=== PATIENT | male | born 1935 | race Caucasian/White ===

== ENCOUNTER 2024-01-04 20:28 | Inpatient (IN) | payer MEDICARE, SELFPAY ==
[2024-01-04] VITALS (8 sets, daily range): BP systolic 124–155; BP diastolic 71–98; BMI 34.5; BMI 36.5
[2024-01-04 17:33] LABS: % Basophils 0.6 % (0-2); % Eosinophils 3.4 % (0-6); % Immature Granulocytes 0.3 % (0-0.5); % Lymphocytes 25.9 % (20.5-51.1); % Monocytes 8.7 % (1.7-9.3); % Neutrophils 61.1 % (42.2-75.2); Absolute Eosinophils 0.2 10^3/uL (0-0.7); Absolute Lymphocytes 1.7 10^3/uL (1.2-3.4); Absolute Monocytes 0.6 10^3/uL (0.1-0.6); Hemoglobin 12.1 g/dL (13.0-18.0); Mean Corp Hgb Conc. 32.7 g/dL (33.0-37.0); Mean Corpuscular Hgb 23.5 pg (27.0-31.0); Mean Platelet Volume 10.5 fL (7.4-10.4); Nucleated Red Blood Cells % 0 % (-); Platelet Count 174 10^3/uL (130-400); Red Blood Cell Count 5.14 10^6/uL (4.70-6.10); Red Cell Dist. Width 15.9 % (11.5-14.5); White Blood Cell Count 6.5 10^3/uL (4.8-10.8)
[2024-01-04 17:51] LABS: ALT (SGPT) 24 U/L (0-50); AST (SGOT) 28 U/L (17-59); Albumin 4.2 g/dl (3.5-5.0); Alkaline Phosphatase 70 U/L (38-126); Blood Urea Nitrogen 32 mg/dl (9-20); Carbon Dioxide 25 mmol/L (22-30); Estimated Creatinine Clearance 44 ml/min; Glucose 133 mg/dl (70-99); Total Bilirubin 0.8 mg/dl (0.2-1.3); eGFR 53.17
[2024-01-04 17:57] LABS: NT-proBNP 1040 pg/ml; Troponin I < 0.012 ng/ml
[2024-01-04 17:59] LABS: Chloride 103 mmol/L (98-107); Potassium 4.4 mmol/L (3.5-5.1); Sodium 138 mmol/L (135-145)
--- NOTE | 2024-01-04 18:42 | ED.GENMED ---
History of Present Illness
General
Chief Complaint: Breathing Problem
Source: patient
Exam Limitations: none
Time Seen by Provider: 01/04/24 17:14
Nursing documentation reviewed up to this point in time: agreed with
Travel History
Have you had any contact with someone who has COVID-19?: No
Do you have any symptoms of coronavirus? Fever > 100 degrees, chills, cough, shortness of breath, sore throat, loss of taste or smell, muscle aches, or headache?: No
History of Present Illness
History of Present Illness:
88 y/o M from [employer] office with h/o chronic restrictive lung disease, FARMER, EFRAIN, htn, hld
chronic edema
here with worsening chronic FARMER x 3 weeks with 10 pound weight gain, worsening edema
he is on lasix 20 mg 4 times aweek for his edema, no dx of chf
pt apparently was followin gup today to get a new c pap machine and he was found to have wrosening edema, crackles both lungs. he apparently has had previous BNP which was normal 107 in 2021.
pt has not had any exertional chest pain
he says that he cannot do any light activity without dyspnea
he sleeps in a recliner with his legs down
followed by derek; anticoagulted duet o h/o atrial flutter
and has had stress test in 2021 which was neg.
Review of Systems
Review of Systems
Allergies reviewed?: Yes
All Other Systems: Not applicable
Phy Exam
Physical Exam
Physical Exam:
GENERAL: Alert , in no apparent distress, elevated BMI
EYE: pupils equal and reactive
NECK: Supple
ENT: o/p clr, mmm.
CARDIAC: Regular rate and rhythm ., Severe edema bilateral lower extremities, pitting
LUNGS: No tachypnea or respiratory distress, crackles in both bases, edema in both lower legs
ABDOMEN: Soft, without focal tenderness, no r/g, no cvat, normal bowel sounds
NEUROLOGICAL: Alert and oriented, no focal neuro deficits
SKIN: Warm and dry, skin intact. Hyperpigmentation bilateral lower extremities
MUSCULOSKELETAL: Moderate edema well perfused. neg fernando's sign
PSYCH: Normal and appropriate interaction.
Scores
Heart Failure Risk
Heart Failure Risk Score: Yes
History of Stroke or TIA: No
History of intubation for respiratory distress: No
Heart rate on ED arrival >/= 110: No
SaO2 <90% on arrival on room air: No
HR >/=110 during 3min walk test (or too ill to perform test): No
ECG has acute ischemic changes: No
Urea >/=12mmol/L (BUN 33.6mg/dL): No
Serum CO2>/=35mmol/L: No
Troponin I or T elevated to ND Level (0.4mg/dL): No
NT-proBNP >/=5,000ng/L (5,000pg/ml): No
HF Risk Score: 0
Admission Status: LOW RISK 2.8% Consider discharge to home with f/u visit to PCP/R D Engineer
Course
Orders/Labs/Results
Orders:
Orders
01/04/24 14:53
EKG [Electrocardiogram (*1)] Urgent
Reason for Study: Shortness of Breath
EKG- Treatment ONCE
01/04/24 17:23
Complete Blood Count/With Diff Urgent
Comprehensive Metabolic Panel Urgent
Pro-BNP [NT-proBNP] Urgent
Troponin I Urgent
01/04/24 17:44
CR Chest - 2 Views Urgent
Comment:
Reason For Exam: edema, sob
01/04/24 18:58
Furosemide [Lasix] 40 mg IV NOW STA
Abnormal Lab Results
01/04/24
17:23
Hgb 12.1 L g/dL
(13.0-18.0)
Hct 37.0 L %
(39.0-52.0)
MCV 72.0 L fL
(80.0-94.0)
MCH 23.5 L pg
(27.0-31.0)
MCHC 32.7 L g/dL
(33.0-37.0)
RDW 15.9 H %
(11.5-14.5)
MPV 10.5 H fL
(7.4-10.4)
BUN 32 H mg/dl
(9-20)
Glucose 133 H mg/dl
(70-99)
01/04/24 17:23
01/04/24 17:23
Vital Signs
Initial and Last Documented VS:
Initial Vital Signs
Temp Pulse Resp BP Pulse Ox
98.4 F 53 26 148/91 95
01/04/24 14:49 01/04/24 14:49 01/04/24 14:49 01/04/24 14:49 01/04/24 14:49
Last Documented Vital Signs
Temp Pulse Resp BP Pulse Ox
98.4 F 53 26 148/91 95
01/04/24 14:49 01/04/24 14:49 01/04/24 14:49 01/04/24 14:49 01/04/24 17:21
MDM/Problems Addressed
Differential Diagnosis Includes:
chf, edema, copd
MDM/Problems Addressed:
will correa 88 y/o M with hth, hld, copd, PAF on thinners, sleep apnea; sent by pulm for worsening acute on chrnoic FARMER x 3 weeks with worsening edema in legs; takes lasix 20 mg 4 x per week, no dx of chf; followed by derek; pt has had 10
pound weight gain and now has crackles in lungs; no chest pain; bnp today 1000, previously 107 per pulm notes that pt has with him. small pleural effusions on cxr; ordered lasix; trop neg. pt meets admission criteria for acute chf.
*Critical Care Note
Total Time (30-74mins, 75-104mins- exclusive of procedures): Not Applicable
ED Attending Note
-
Portions of this chart may have been created with voice recognition software.� Occasional wrong word or��sound alike� substitutions may have occurred due to the inherent limitations of voice recognition software.
Discharge Plan
Departure
Patient Disposition: Admit
Date of Disposition: 01/04/24
Time of Disposition: 18:58
Admit to: Telemetry
Presentation/result/management discussed w/ accepting MD/DO: Hospitalist
Condition: Fair
Covid-19: Not Applicable
Discharge Problem:
CHF (congestive heart failure)
Prescriptions:
No Action
aspirin 81 MG tablet,delayed release (DR/EC)
81 mg PO HS
amlodipine 10 MG tablet
10 mg PO DAILY
losartan 25 MG tablet
25 mg PO DAILY
Referrals:
Linda Rao CRNP [Family Provider] -
Interventions
Interventions:
*Risk Screen - Suicide Last Done: 01/04/24 14:49
*General Assessment Last Done: 01/04/24 14:49
*Neglect/Abuse Screening Last Done: 01/04/24 14:49
ED- Fall Risk Assessment Last Done: 01/04/24 17:22
*ED COVID-19 Vaccine History Last Done: 01/04/24 14:49
ED- Cardiac Assessment Last Done: 01/04/24 17:21
ED- Pulmonary Assessment Last Done: 01/04/24 17:21
[2024-01-04] MEDS: LASIX 40 MG IV (19:11)
--- NOTE | 2024-01-04 20:01 | HPS.HSE ---
Family Physician
-
Family Physician: ДМИТРИЙ Herr
Chief Complaint
-
SOB, Edema
History of Present Illness
Patient is an 88y M with PMH significant for COPD, EFRAIN, hypertension and obesity who presents to ED complaining of SOB and LE edema. Patient states that he has noted increasing swelling of both legs for the past 3 weeks or so. He has also noted
shortness of breath with minimal activity during that same time frame. He notes that he sleeps upright in a recliner - with his legs in a dependent position / not elevated. He has been poorly compliant with his PAP therapy, until he received a new
machine within the past month. He has been doing much better since then. He denies any cough, chest pain, palpitations or fevers and chills. He was seen by his Professor Of Counseling today and advised to present to the ED for evaluation of apparent volume
overload / CHF.
Patient states that he is followed by Dr. Barajas; although, he cannot tell me why. He has some evident memory impairment and is a generally poor historian.
Medical History
Past Medical History
Past Medical History: Reports Other
Additional Past Medical History:
COPD
Restrictive Lung Disease
EFRAIN on CPAP
Obesity
A-Fib / Flutter
Prostate Cancer
GERD
Hypertension
Past Surgical History: Reports Other
Additional Past Surgical History:
Radical Prostatectomy
Social History
Tobacco: Former Smoker (Quit smoking about 20 years ago. > 40 pack years total use.)
Alcohol: Occasional
Drug: None
Personal:
Living: With Family
Family History
Family History: Other (Father: CAD Mother: Longevity)
Allergies / Home Medications
Allergies reflects when Allergies were last updated in [facility].
Home Medications with original date entered in [facility]
Allergy/Medication List:
Allergies
Allergy/AdvReac Type Severity Reaction Status Date / Time
Bee Stings Allergy Severe Anaphylaxis Uncoded 07/20/16 09:55
Home Medications
albuterol sulfate 90 mcg/actuation aerosol inhaler (Ventolin HFA) 2 puff inhalation 6XD PRN SOB 01/04/24
amlodipine 5 mg tablet (Norvasc) 5 mg PO DAILY 01/04/24
atorvastatin 10 mg tablet (Lipitor) 10 mg PO HS 01/04/24
budesonide 180 mcg/actuation breath activated powder inhaler (Pulmicort Flexhaler) 2 inh inhalation BID 01/04/24
esomeprazole magnesium 20 mg capsule,delayed release (Nexium) 20 mg PO DAILY 01/04/24
furosemide 20 mg tablet (Lasix) 20 mg PO MOWEFRSA 01/04/24
rivaroxaban 20 mg tablet (Xarelto) 20 mg PO DAILY 01/04/24
valsartan 160 mg tablet 160 mg PO DAILY 01/04/24
vitamins A,C,J-lvjz-orgfaa 2,148 mcg-113 mg-45 mg-17.4 mg tablet (PreserVision AREDS) 1 tab PO DAILY 01/04/24
Review of Systems
-
History Source: Patient
A 12 point ROS was completed and negative except as noted: Yes
Constitutional: Reports Fatigue and Sleep Disturbance; Denies Fever or Chills
EENT: Denies Sore Throat
Respiratory: Reports Trouble Breathing; Denies Cough or Hemoptysis
Cardiac: Denies Chest Pain, Diaphoresis, Palpitations or Syncope
Abdomen/GI: Denies Abdominal Pain, Nausea, Vomiting or Diarrhea
: Reports Other (Nocturia); Denies Dysuria, Frequency or Flank Pain
Musculoskeletal: Reports Edema
Neurological: Denies Dizzy or Headache
Psych: Denies Depression or Anxiety
Physical Exam
Vital Signs
Vital Signs
Temp Pulse Resp BP Pulse Ox
98.4 F 98 23 126/71 96
01/04/24 14:49 01/04/24 19:45 01/04/24 19:45 01/04/24 19:11 01/04/24 19:30
Physical Exam
General: Other (88y M in no acute distress.)
HEENT: Moist mucous membranes, PERRLA and Other (Thick neck.)
Respiratory: Other (Rales about 1/2 up bilaterally. Scattered expriratory squeaks and wheezes.)
Cardiac: S1/S2, Irregular Rhythm and Murmur (II/ VIRGEN)
GI: Soft, Non Tender, Non Distended and Normal Bowel Sounds
Musculoskeletal: No Clubbing, No Cyanosis and Other (3+ pitting edema b/l LE to the thigh. Superficial excoriations from scratching / itching.)
Neuro: AO x 3
Psych: Other (Memory impairment evident.)
Laboratory Results
-
01/04/24 17:23
01/04/24 17:23
Laboratory Results
Total Bilirubin 0.8 mg/dl (0.2-1.3) 01/04/24 17:23
AST 28 U/L (17-59) 01/04/24 17:23
ALT 24 U/L (0-50) 01/04/24 17:23
Alkaline Phosphatase 70 U/L (38-126) 01/04/24 17:23
Troponin I < 0.012 ng/ml 01/04/24 17:23
Impression/Plan
-
A/P: Patient is an 88y M with PMH significant for COPD, EFRAIN and hypertension who presents to ED for evaluation of LE edema and SOB that has been progressive over the past 3 weeks or so.
Acute CHF - Unknown Type
- Admit for further evaluation and treatment.
- Patient with rales on exam, evident edema and elevated BNP c/w CHF.
- Suspect preserved EF but will update Echo to confirm.
- IV Lasix and follow for effective diuresis.
- Cardiology evaluation.
- ? secondary to lung disease / poor compliance with PAP therapy v arrhythmia / A-Fib.
- Follow for clinical improvement.
COPD
Restrictive Lung Disease
EFRAIN on CPAP
- Patient admits to chronically poor compliance with his PAP therapy.
- Reinforced need for adequate EFRAIN treatment to prevent rodent exterminator complications.
- CPAP nightly during his stay here.
- Follow-up with Pulm as an outpatient.
- Continue inhaled medications for COPD.
Atrial Fibrillation / Flutter
- Suspect this is paroxysmal. A-Fib / Flutter based on Pulm notes and current meds (Xarelto).
- Patient has no recollection of this and cannot state why he follows with Cardiology.
- Cardio eval as noted above.
- Monitor on tele for now.
- Consider rate control medications if needed.
- May need rhythm control strategy if CHF is felt to be due to A-Fib.
- Continue Xarelto for stroke risk reduction.
Benign Hypertension
- Stable. Hold current BP medications to allow for effective diuresis.
- Resume ARB if BP tolerates.
CKD III
- Stable. Renal function is at / near recent baseline.
- Follow for changed with diuresis.
GERD
- Stable. Continue daily PPI.
Obesity due to excess calories
- Stable. Encourage healty diet and increased activity with goal of weight loss.
DVT Prophylaxis: On Xarelto
Code Status: Full
[2024-01-04] MEDS: PULMICORT 0.5 MG INH (22:20)
[2024-01-04] MEDS: LIPITOR 10 MG PO (22:33)
[2024-01-04] MEDS: MELATONIN 5 MG PO (22:33)
[2024-01-04 23:06] LABS: TSH Reflex To Free T4 3.24 uIU/ml (0.47-4.68)
[2024-01-05] VITALS (7 sets, daily range): BP systolic 116–157; BP diastolic 74–97; PULSE 79–83; O2SAT 97; BMI 35.7
[2024-01-05 00:54] LABS: Troponin I < 0.012 ng/ml
--- NOTE | 2024-01-05 05:34 | PTCARENOTE ---
Patient received from ED via stretcher and ambulated to bed with staff. He was oriented to room and surroundings. He is OX3. HR irregular. A fib with PVC on tele. LE +2-3 edema, elevated on pillows. He is FARMER with orthopnea Breath sounds with
scattered coarse rhonchi. RT in for neb tx. Sat 94% on room air. Abdomen is round and obese. He is voiding frequently in urinal. Bladder scan as documented. St cath for 500ml this shift. CHF folder given. See CHF education for teaching
points. Patient was restless and is very forgetful. Bed alarm and med sitter in place.
[2024-01-05 07:38] LABS: Hematocrit 36.2 % (39.0-52.0); Hemoglobin 11.6 g/dL (13.0-18.0); Mean Corpuscular Hgb 23.4 pg (27.0-31.0); Mean Corpuscular Volume 73.1 fL (80.0-94.0); Mean Platelet Volume 10.4 fL (7.4-10.4); Platelet Count 170 10^3/uL (130-400); Red Blood Cell Count 4.95 10^6/uL (4.70-6.10); Red Cell Dist. Width 15.8 % (11.5-14.5)
[2024-01-05 08:01] LABS: Troponin I 0.016 ng/ml
[2024-01-05 08:13] LABS: Blood Urea Nitrogen 30 mg/dl (9-20); Carbon Dioxide 28 mmol/L (22-30); Chloride 104 mmol/L (98-107); Estimated Creatinine Clearance 37 ml/min; Glucose 90 mg/dl (70-99); Sodium 139 mmol/L (135-145); eGFR 48.65
[2024-01-05] MEDS: PULMICORT 0.5 MG INH ×2 (08:19→20:32)
--- NOTE | 2024-01-05 08:48 | CON.CAR ---
Addendum entered and electronically signed by Juan David Mathur MD 01/05/24 11:07:
88-year-old male with COPD admitted now with shortness of breath and lower extremity edema after being seen by pulmonary as an outpatient today. Has a history of paroxysmal atrial fibrillation, was in sinus rhythm when last seen in cardiology
office in July 2023.
Allergies: None to medications
Outpatient medications: Ventolin, amlodipine 5 mg a day, atorvastatin 10 mg at bedtime, Pulmicort, Nexium, furosemide 20 mg 4 days a week, rivaroxaban 20 mg a day, valsartan 160 mg a day
PMH: COPD, sleep apnea, hypertension, obesity atrial fibrillation/flutter
PSH: Prostatectomy
SH: Former smoker, 20 years ago, occasional alcohol, , retired, lives with family
FH: Noncontributory
Review of systems negative except as above
157/87, pulse 58, respiratory 16, afebrile, sats 95%
Intake and output -1.2 L, straight cath 500 mL, weight 91.4 kg, down 2.1 kg at least, possibly more
No acute distress, head neck exam unremarkable, still with rales in lungs, irregular rate and rhythm, soft systolic murmur at base, JVD probably okay, abdomen benign, 3-4+ edema with excoriations, neuro nonfocal
Chest x-ray cardiomegaly, vascular congestion with possible minimal effusions, relatively low lung volumes
ECG atrial fibrillation, PVCs versus aberrant ventricular conduction, right bundle branch block left axis, relatively slow
Sestamibi study march 2022: Normal perfusion normal EF, rhythm was sinus
Echocardiogram May 2021 EF 55-60%, mild LVH, normal RV, dilated left atrium, mild to moderate mitral regurgitation, aortic valve area 1.1 peak gradient 31 mean gradient 16, pulmonary artery systolic pressure 31 mmHg
Hemoglobin 11.6, MCV 73, platelets 170, BUN/creatinine 30 and 1.4, proBNP 1040, troponin 0.016, normal TSH
Impression:
Acute on chronic heart failure with preserved EF, proBNP
Atrial fibrillation w/ controlled ventricular response, last in sinus rhythm July 2023
CKD, stage 3
COPD
Restrictive Lung Disease
EFRAIN on CPAP
Obesity
A-Fib / Flutter
Chronic anti-coagulation with Xarelto
PVCs
RBBB
Prostate Cancer
s/p Radical ProstatectomyGERD/Gastritis
Hypertension
Anemia, suspect iron deficiency
Echo 06/02/2021: EF 55 to 60%, mild concentric LVH.� Stage I DD, mild to moderate MR, mild to moderate with peak/mean gradient 31/16 mmHg with JEREMIAH 1.1 cm�.� Mild TR with PAP 31 mmHg.
Lexiscan nuclear stress test 03/21/22�with normal perfusion. EF 60%.
Plan:
He presents with what is presumably subacute HFpEF on possible mild chronic HFpEF with modest valvular heart disease in the form of aortic stenosis and mild to moderate MR.
Atrial fibrillation is probably persistent at this time and may be a contributor to his HFpEF. Given his circumstances however, I would favor a rate control strategy with continuation of anticoagulation rather than an attempt to reestablish sinus
rhythm.
Rate is adequately controlled. With HFpEF avoid calcium rony. With COPD, may want to limit beta-blockers.
Suspect he has iron deficiency anemia in the setting of Xarelto therapy. Will check iron studies, consider transition to Eliquis. Defer to hospitalist whether GI evaluation is warranted.
Will await echocardiogram, then make determination regarding best medical regimen, SGLT2 antagonists, spironolactone etc.
Continue IV furosemide. He is still probably 10 to 15 pounds above dry weight.
Original Note:
Consultation
Consultation Request
Date/Time Consultation Requested: 01/04/2024
Date/Time Consultation Performed: 01/05/2024
Requesting Provider: Dr. Rosario
Performing Provider: Yuliana Garcia PA-C for Dr. ELMIRA Mathur
Reason for Consultation: SOB, Edema
Medical History
-
History of Present Illness:
Patient is an 88 YOM w/ past medical history of hypertension, paroxysmal atrial fibrillation/flutter on chronic anticoagulation, hyperlipidemia, PVCs, prostate cancer s/p prostatectomy, COPD, restrictive lung disease and sleep apnea with
non-compliance with CPAP. He was seen by his outpatient stock taker 01/04/2023 and complained of ongoing shortness of breath, orthopnea and lower extremity edema and was referred to the emergency department. On arrival to emergency department
patient was noted to be in atrial fibrillation with controlled ventricular response with PVCs. Chest x-ray demonstrated stable elevation of right hemidiaphragm and stable scarring/atelectasis of lower lobes. proBNP mildly elevated at 1040.
Troponin x 3 negative. Patient was provided 40 mg IV Lasix in emergency department.
PMH:
COPD
Restrictive Lung Disease
EFRAIN on CPAP
Obesity
A-Fib / Flutter
Chronic anti-coagulation with Xarelto
PVCs
RBBB
Prostate Cancer
s/p Radical Prostatectomy
GERD/Gastritis
Hypertension
Past Medical History
Past Medical History: Other (See HPI)
Past Surgical History: Urological (Radical Prostatectomy)
Social History
Tobacco: Former Smoker (Quit smoking about 20 years ago. > 40 pack years total use.)
Alcohol: Occasional
Drug: None
Personal:
Living: With Family
Family History
Family History: CAD (Father) and Other (Mother Alzheimer dementia)
Allergies / Home Medications
Allergy/AdvReac Type Severity Reaction Status Date / Time
Bee Stings Allergy Severe Anaphylaxis Uncoded 07/20/16 09:55
Medication Instructions Recorded Confirmed Type
albuterol sulfate 90 mcg/actuation 2 puff inhalation 6XD PRN SOB 01/04/24 01/04/24 History
aerosol inhaler (Ventolin HFA)
amlodipine 5 mg tablet (Norvasc) 5 mg PO DAILY 01/04/24 01/04/24 History
atorvastatin 10 mg tablet (Lipitor) 10 mg PO HS 01/04/24 01/04/24 History
budesonide 180 mcg/actuation 2 inh inhalation BID 01/04/24 01/04/24 History
breath activated powder inhaler
(Pulmicort Flexhaler)
esomeprazole magnesium 20 mg 20 mg PO DAILY 01/04/24 01/04/24 History
capsule,delayed release (Nexium)
furosemide 20 mg tablet (Lasix) 20 mg PO MOWEFRSA 01/04/24 01/04/24 History
melatonin 5 mg tablet 5 mg PO HS PRN sleep 01/04/24 01/04/24 History
rivaroxaban 20 mg tablet (Xarelto) 20 mg PO DAILY 01/04/24 01/04/24 History
valsartan 160 mg tablet 160 mg PO DAILY 01/04/24 01/04/24 History
vitamins A,C,Z-wejo-brbzuu 2,148 1 tab PO DAILY 01/04/24 01/04/24 History
mcg-113 mg-45 mg-17.4 mg tablet
(PreserVision AREDS)
Review of Systems
-
History Source: Patient
All other systems: Negative unless noted
Physical Exam
Vital Signs
Temp Pulse Resp BP Pulse Ox
97.0 F 58 16 157/84 95
01/05/24 07:30 01/05/24 08:21 01/05/24 08:21 01/05/24 07:30 01/05/24 08:21
GEN: No distress, awake, Ox3
HEENT: supple, anicteric, mmm
LUNGS: crackles bilaterally with squeaks and faint exp wheeze
CV: Irreg irreg, S1/S2, 2/6 syst murmur
ABD: soft, BS+, NT/ND
EXT: +2-3 kirby edema
NEURO: poor historian, cognitive impairment
SKIN: No rash, excoriations on legs from itching
Lab Results
01/05/24 07:08
01/05/24 07:08
Troponin I 0.016 ng/ml D 01/05/24 07:08
Ehj-H-Vvdkutgjpsb Pept 1040 pg/ml 01/04/24 17:23
Impression / Plan
-
PCP: ДМИТРИЙ Herr
Health Occupations Instructor: Dr. Barajas
Impression:
Presented 01/04/2023 with edema and SOB
Acute on chronic heart failure with preserved EF, proBNP
Atrial fibrillation w/ controlled ventricular response, unclear duration
CKD, stage 3
COPD
Restrictive Lung Disease
EFRAIN on CPAP
Obesity
A-Fib / Flutter
Chronic anti-coagulation with Xarelto
PVCs
RBBB
Prostate Cancer
s/p Radical Prostatectomy
GERD/Gastritis
Hypertension
Echo 06/02/2021: EF 55 to 60%, mild concentric LVH. Stage I DD, mild to moderate MR, mild to moderate with peak/mean gradient 31/16 mmHg with JEREMIAH 1.1 cm�. Mild TR with PAP 31 mmHg.
Lexiscan nuclear stress test 03/21/22 with normal perfusion. EF 60%.
Plan:
Patient is an 88 YOM w/ past medical history of hypertension, paroxysmal atrial fibrillation/flutter on chronic anticoagulation, hyperlipidemia, PVCs, prostate cancer s/p prostatectomy, COPD, restrictive lung disease and sleep apnea with
non-compliance with CPAP. He was seen by his outpatient stock taker 01/04/2023 and complained of ongoing shortness of breath, orthopnea and lower extremity edema and was referred to the emergency department. On arrival to emergency department
patient was noted to be in atrial fibrillation with controlled ventricular response with PVCs. Chest x-ray demonstrated stable elevation of right hemidiaphragm and stable scarring/atelectasis of lower lobes. proBNP mildly elevated at 1040.
Troponin x 3 negative. Patient was provided 40 mg IV Lasix in emergency department.
-Presented 01/04/2024 with ongoing shortness of breath, edema, orthopnea.
-Acute on chronic heart failure with preserved ejection fraction, proBNP 1040.
-Patient reports good response to Lasix with at least 5 pound weight loss overnight. Continue gentle diuresis with IV Lasix. Takes Lasix 20 mg few times a week at home
-Monitor and trend renal function and electrolytes, creatinine did bump from 1.3-1.4 overnight.
-Would check echocardiogram
-Patient is now in atrial fibrillation with controlled ventricular response. He has a history of PAF. He is maintained on Xarelto as outpatient. He does admit to noncompliance with his CPAP recently which could have triggered his atrial
fibrillation. Continue to monitor on telemetry. Could consider cardioversion once improved from a volume standpoint
-History of hypertension on Norvasc and Valsartan at home. Consider switching Norvasc to Toprol or Cardizem pending echo.
-COPD/restrictive lung disease and EFRAIN w/ non-compliance w/ CPAP. Needs to have better compliance w/ CPAP to help reduce risk of PAF. Pulmonary is in process of arranging new CPAP mask.
Data Reviewed
-
EKG: Report Reviewed by me, Discussed with Physician, Discussed with Nurse and Discussed with Patient
Radiology: Report Reviewed by me, Discussed with Physician and Discussed with Patient
Labs: Labs Reviewed by me, Discussed with Physician, Discussed with Nurse and Discussed with Patient
Old Records: Reviewed
[2024-01-05] MEDS: XARELTO 20 MG PO (09:00)
[2024-01-05] MEDS: LASIX 20 MG IV ×2 (09:01→15:44)
[2024-01-05] MEDS: PROTONIX 40 MG PO (09:01)
--- NOTE | 2024-01-05 12:35 | W.PN.HOSP.TC ---
Addendum entered and electronically signed by Brad Bernabe MD 01/05/24 12:40:
Anemia with microcytosis dating back Many years. H&H stable. Check iron studies and heme test stools.
Original Note:
Today's Communication/Plan
-
Continue IV Lasix.
Follow creatinine and weight.
Check echocardiogram.
Continue telemetry.
Assessment / Plan
Assessment / Plan
A/P:� Patient is an 88y M with PMH significant for COPD, EFRAIN and hypertension who presents to ED for evaluation of LE edema and SOB that has been progressive over the past 3 weeks or so.
Acute CHF - Unknown Type
�- Admitted for further evaluation and treatment.
�-Patient feeling improved since admission.
�-Continue IV Lasix and follow for effective diuresis.
�- Cardiology evaluation noted-for echo today
�
COPD
Restrictive Lung Disease
EFRAIN on CPAP
�- Patient admits to chronically poor compliance with his PAP therapy.
�- Reinforced need for adequate EFRAIN treatment to prevent snf complications.
�- CPAP nightly during his stay here.
�- Follow-up with Pulm as an outpatient.
�- Continue inhaled medications for COPD.
-No acute bronchospasm. Doubt COPD flare.
Atrial Fibrillation / Flutter
�-No suspected persistent.
�- Patient has no recollection of this and cannot state why he follows with Cardiology.
�- Cardio eval as noted above.
�- Monitor on tele for now.
�- cw rate control medications .
��- Continue Xarelto for stroke risk reduction-based on the creatinine clearance decrease it to 50 mg.
Benign Hypertension
�- Stable.� Hold current BP medications to allow for effective diuresis.
�- Resume ARB if BP tolerates.
CKD III
�- Stable.� Renal function is at / near recent baseline.
�- Follow for changed with diuresis.
GERD
�- Stable.� Continue daily PPI.
Obesity due to excess calories
�- Stable.� Encourage healty diet and increased activity with goal of weight loss.
DVT Prophylaxis:� On Xarelto
Code Status:� Full
Anticipated Discharge: 24 - 48 hours
Subjective/Interval History
-
Date of Service: January 05, 2024
Feeling much improved with his breathing since coming into the hospital.
Objective Data
-
Labs:
Laboratory Results
01/05/24
07:08
WBC 7.0
Hgb 11.6 L
Hct 36.2 L
Plt Count 170
Sodium 139
Potassium 4.0
Chloride 104
Carbon Dioxide 28
BUN 30 H
Creatinine 1.4 H
Glucose 90
Calcium 9.0
Vital Signs:
Vital Signs
Temp Pulse Resp BP Pulse Ox
97.0 F 58 16 157/84 95
01/05/24 07:30 01/05/24 09:01 01/05/24 08:21 01/05/24 09:01 01/05/24 08:21
I&O
01/04/24 01/05/24 01/06/24
06:59 06:59 06:59
Intake Total 240 / 240
Output Total 1450 / 1450
Balance -1210 / -1210
Review of Systems
-
Constitutional: Denies Fever
EENT: Denies Sore Throat
Respiratory: Reports Cough (Intermittent)
Cardiac: Denies Chest Pain
Abdomen/GI: Denies Abdominal Pain, Nausea or Vomiting
Neuro: Denies Dizzy
Physical Exam
-
General: No Apparent Distress
HEENT: Moist Mucous Membranes
Respiratory: Crackles (Few in the left base today) and Non Labored Respirations; Negative Wheezes or Accessory Resp Muscle Use
GI: Soft, Nontender, Nondistended and Normal Bowel Sounds
Musculoskeletal: Edema, Right Lower Extrem and Edema, Left Lower Extrem
Neuro: AO x 3
Psych: Calm
Data Reviewed
-
Labs: Labs Reviewed by me
[2024-01-05 13:06] LABS: Iron 43 ug/dl (49-181)
[2024-01-05 13:11] LABS: Troponin I 0.012 ng/ml
[2024-01-05 13:16] LABS: Percent Saturation 11 % (20-50); Total Iron Binding Capacity 371 ug/dl (261-462)
--- NOTE | 2024-01-05 16:55 | CM ---
CM following re: d/c planning
Chart reviewed
CM attempted to meet with the patient at bedside however he was off the floor for an echo; pt spouse was at bedside and IA completed
Pt and his spouse reside in a split-level home with 10 [employer]
[employer]AGE BAT[employer] AND TESTER patient is reportedly independent at baseline
Pt has no past VN/SNF hx; and owns a r/w and spc
Pt has prescription coverage and rx's are [facility]
Pt PCP-Stephanie Zavala
Per PT eval. post d/c recommendation is for VN
CM to discuss home care options with patient and his spouse
CM will continue to remain available to the patient and assist with needs as applicable
PLAN; d/c home with VN
[2024-01-05] MEDS: DUONEB 3 ML INH (20:34)
[2024-01-05] MEDS: LIPITOR 10 MG PO (21:11)
[2024-01-05] MEDS: MELATONIN 5 MG PO (21:11)
[2024-01-06] VITALS (7 sets, daily range): BP systolic 121–134; BP diastolic 63–91; PULSE 64; O2SAT 95; BMI 35.3
--- NOTE | 2024-01-06 07:59 | W.PN.HOSP.TC ---
Today's Communication/Plan
-
DC planning.
Assessment / Plan
Assessment / Plan
A/P:� Patient is an 88y M with PMH significant for COPD, EFRAIN and hypertension who presents to ED for evaluation of LE edema and SOB that has been progressive over the past 3 weeks or so.
Acute CHF -with preserved EF.
�-Echo shows normal EF with moderate AAS without much significant changes on recent echo.
�-Patient feeling improved since admission. Improved weight to 199 pounds which is the lowest we have seen in the [facility]. also confirms it is the lowest weight.
�-Continue IV Lasix
�- Cardiology following.
-Labs from today pending.
�
COPD
Restrictive Lung Disease
EFRAIN on CPAP
�- Patient admits to chronically poor compliance with his PAP therapy.
�- Reinforced need for adequate EFRAIN treatment to prevent nursing home complications.
�- CPAP nightly during his stay here.
�- Follow-up with Pulm as an outpatient.
�- Continue inhaled medications for COPD.
- No active bronchospasm. Doubt COPD flare.
Atrial Fibrillation / Flutter
�- persistent.
��- Cardio eval as noted above.
� - cw rate control medications .Rate mostly under control.
��- Continue Xarelto for stroke risk reduction-based on the creatinine clearance decrease it to 50 mg.
Benign Hypertension
�- Stable.� Hold current BP medications to allow for effective diuresis.
�- Resume ARB if BP tolerates.
Cognitive impairment-patient has issues with orientation today but redirectable. Discussion with the today-patient also noted to be sometimes disoriented in his own house. Lately he has memory issues. No given diagnosis of dementia. They
noticed this changes ongoing for a bit. Advised to get neurocognitive testing as an outpatient for diagnosis of dementia
CKD III
�- Stable.� Renal function is at / near recent baseline.
�- Follow for changed with diuresis.
GERD
�- Stable.� Continue daily PPI.
Obesity due to excess calories
�- Stable.� Encourage healty diet and increased activity with goal of weight loss.
DVT Prophylaxis:� On Xarelto
Code Status:� Full
DC home if stable from cardiology standpoint today.
Anticipated Discharge: Today
Subjective/Interval History
-
Date of Service: January 06, 2024
This morning he is a bit disoriented. Directable. Last night no agitation noted.
Once he got reoriented he states he feels fine from the breathing standpoint his main complaint is lower extremity edema.
He wants to go home.
Objective Data
-
Labs:
Laboratory Results
01/06/24
07:36
WBC Pending
Hgb Pending
Hct Pending
Plt Count Pending
Sodium Pending
Potassium Pending
Chloride Pending
Carbon Dioxide Pending
BUN Pending
Creatinine Pending
Glucose Pending
Calcium Pending
Vital Signs:
Vital Signs
Temp Pulse Resp BP Pulse Ox
97.5 F 71 24 128/91 98
01/06/24 07:15 01/06/24 07:15 01/06/24 07:15 01/06/24 07:15 01/06/24 07:15
I&O
01/05/24 01/06/24 01/07/24
06:59 06:59 06:59
Intake Total 240 / 240 1140 / 1140
Output Total 1450 / 1450 1050 / 1050
Balance -1210 / -1210 90 / 90
Review of Systems
-
Respiratory: Denies Trouble Breathing
Cardiac: Denies Chest Pain
Abdomen/GI: Denies Abdominal Pain, Nausea or Vomiting
Neuro: Denies Dizzy
Physical Exam
-
General: No Apparent Distress
HEENT: Moist Mucous Membranes
Respiratory: Clear to Auscultation
Cardiac: S1/S2 and Irregular Rhythm; Negative Tachycardic
GI: Soft
Neuro: Awake, Alert, Oriented (Self and person) and No Motor Deficits; Negative Tremors
Psych: Calm and Confused; Negative Agitated
Data Reviewed
-
Labs: Labs Reviewed by me (Pending from today)
[2024-01-06 08:39] LABS: Hematocrit 37.2 % (39.0-52.0); Hemoglobin 12.1 g/dL (13.0-18.0); Mean Corp Hgb Conc. 32.5 g/dL (33.0-37.0); Mean Corpuscular Hgb 23.5 pg (27.0-31.0); Mean Corpuscular Volume 72.4 fL (80.0-94.0); Mean Platelet Volume 10.4 fL (7.4-10.4); Platelet Count 187 10^3/uL (130-400); Red Blood Cell Count 5.14 10^6/uL (4.70-6.10); Red Cell Dist. Width 15.5 % (11.5-14.5); White Blood Cell Count 7.2 10^3/uL (4.8-10.8)
[2024-01-06] MEDS: PULMICORT 0.5 MG INH ×2 (08:48→19:50)
[2024-01-06] MEDS: XARELTO 15 MG PO (08:49)
[2024-01-06] MEDS: DUONEB 3 ML INH ×2 (08:49→19:50)
[2024-01-06] MEDS: LASIX 20 MG IV ×2 (08:49→15:33)
[2024-01-06] MEDS: PROTONIX 40 MG PO (08:53)
[2024-01-06 09:14] LABS: Blood Urea Nitrogen 38 mg/dl (9-20); Calcium 9.1 mg/dl (8.4-10.2); Carbon Dioxide 29 mmol/L (22-30); Chloride 100 mmol/L (98-107); Estimated Creatinine Clearance 34 ml/min; Glucose 97 mg/dl (70-99); Iron 76 ug/dl (49-181); Potassium 3.9 mmol/L (3.5-5.1); Sodium 136 mmol/L (135-145); eGFR 44.78
[2024-01-06 09:25] LABS: Percent Saturation 19 % (20-50); Total Iron Binding Capacity 385 ug/dl (261-462)
[2024-01-06 09:50] LABS: Ferritin 20.3 ng/ml (17.9-464.0)
--- NOTE | 2024-01-06 09:51 | W.PN.CARDCBS ---
Today's Communication / Plan
-
Continue IV Lasix for another 24 hours.
Creatinine at 1.5. Continue to follow
Plan for atrial fibrillation is rate controlled.
Continue Xarelto.
Echo is essentially unchanged with preserved ejection fraction and moderate MR/AI
Likely discharge in a.m.
Impression / Plan
-
PCP: ДМИТРИЙ Herr
Environmental Sampling Technician: Dr. Barajas
Impression:
Presented 01/04/2023 with edema and SOB
Acute on chronic heart failure with preserved EF, proBNP
Atrial fibrillation w/ controlled ventricular response, unclear duration
CKD, stage 3
COPD
Restrictive Lung Disease
EFRAIN on CPAP
Obesity
A-Fib / Flutter
Chronic anti-coagulation with Xarelto
PVCs
RBBB
Prostate Cancer
s/p Radical Prostatectomy
GERD/Gastritis
Hypertension
Echo 06/02/2021: EF 55 to 60%, mild concentric LVH. Stage I DD, mild to moderate MR, mild to moderate with peak/mean gradient 31/16 mmHg with JEREMIAH 1.1 cm�. Mild TR with PAP 31 mmHg.
Lexiscan nuclear stress test 03/21/22 with normal perfusion. EF 60%.
Echo 01/06: EF 50 to 55%, moderate , mild to moderate MR. PA pressure 40
Plan:
Patient is an 88 YOM w/ past medical history of hypertension, paroxysmal atrial fibrillation/flutter on chronic anticoagulation, hyperlipidemia, PVCs, prostate cancer s/p prostatectomy, COPD, restrictive lung disease and sleep apnea with
non-compliance with CPAP. He was seen by his outpatient carbon cutter 01/04/2023 and complained of ongoing shortness of breath, orthopnea and lower extremity edema and was referred to the emergency department. On arrival to emergency department
patient was noted to be in atrial fibrillation with controlled ventricular response with PVCs. Chest x-ray demonstrated stable elevation of right hemidiaphragm and stable scarring/atelectasis of lower lobes. proBNP mildly elevated at 1040.
Troponin x 3 negative. Patient was provided 40 mg IV Lasix in emergency department.
-He is diuresing but remains volume overloaded. Creatinine up to 1.5. He still has edema in his legs. Will try and diurese with IV Lasix for another 24 hours.
-He is agreeable to stay another 24 hours and discharge in a.m. Repeat creatinine in AM. Would likely discharge home on 40 mg of Lasix p.o. daily if creatinine stable in a.m.
-Patient is now in atrial fibrillation with controlled ventricular response. He has a history of PAF. He is maintained on Xarelto as outpatient. He does admit to noncompliance with his CPAP recently which could have triggered his atrial
fibrillation. Continue to monitor on telemetry. Could consider cardioversion once improved from a volume standpoint
-History of hypertension on Norvasc and Valsartan at home. Consider switching Norvasc to Toprol or Cardizem pending echo.
-COPD/restrictive lung disease and EFRAIN w/ non-compliance w/ CPAP. Needs to have better compliance w/ CPAP to help reduce risk of PAF. Pulmonary is in process of arranging new CPAP mask.
Progress Note - Environmental Sampling Technician
Subjective
Date of Service: January 06, 2024
Improving but still with edema.
Objective
Labs:
01/06/24 07:36
01/06/24 07:36
Labs
Hgb 12.1 g/dL (13.0-18.0) L 01/06/24 07:36
Hct 37.2 % (39.0-52.0) L 01/06/24 07:36
Plt Count 187 10^3/uL (130-400) 01/06/24 07:36
Sodium 136 mmol/L (135-145) 01/06/24 07:36
Potassium 3.9 mmol/L (3.5-5.1) 01/06/24 07:36
BUN 38 mg/dl (9-20) H 01/06/24 07:36
Creatinine 1.5 mg/dL (0.7-1.3) H 01/06/24 07:36
Glucose 97 mg/dl (70-99) 01/06/24 07:36
Troponins
01/04/24 01/05/24 01/05/24
17:23 00:25 07:08
Troponin I < 0.012 < 0.012 0.016 D
01/05/24
12:42
Troponin I 0.012
Vital Signs and I&O:
Vital Signs
Temp Pulse Resp BP Pulse Ox
97.5 F 79 18 128/91 96
01/06/24 07:15 01/06/24 08:56 01/06/24 08:56 01/06/24 08:49 01/06/24 08:56
Vital Signs
Temp Pulse Resp BP Pulse Ox
97.5 F 79 18 128/91 96
01/06/24 07:15 01/06/24 08:56 01/06/24 08:56 01/06/24 08:49 01/06/24 08:56
Intake & Output
01/04/24 01/05/24 01/06/24 01/07/24
06:59 06:59 06:59 06:59
Intake Total 240 / 240 1140 / 1140
Output Total 1450 / 1450 1050 / 1050
Balance -1210 / -1210 90 / 90
Physical Exam
Physical Exam
GEN: No distress, awake, Ox3
HEENT: supple, anicteric, mmm
LUNGS: scatt rhonchi
CV: Irreg, S1/S2, 1/6 syst LSB, no gallop
ABD: soft, BS+, NT/ND
EXT: ++ edema
NEURO: Gross non-focal
SKIN: No rash
[2024-01-06] MEDS: MELATONIN 5 MG PO (21:00)
[2024-01-06] MEDS: LIPITOR 10 MG PO (21:00)
[2024-01-07 03:20] VITALS: BP 138/88
[2024-01-07 06:00] VITALS: BMI 35.3
[2024-01-07 07:00] VITALS: BP 141/90
[2024-01-07 08:01] LABS: Blood Urea Nitrogen 44 mg/dl (9-20); Calcium 9.4 mg/dl (8.4-10.2); Carbon Dioxide 32 mmol/L (22-30); Chloride 97 mmol/L (98-107); Estimated Creatinine Clearance 32 ml/min; Glucose 96 mg/dl (70-99); Potassium 3.8 mmol/L (3.5-5.1); Sodium 139 mmol/L (135-145); eGFR 41.44
[2024-01-07] MEDS: LASIX 20 MG IV (08:13)
[2024-01-07] MEDS: PROTONIX 40 MG PO (08:13)
[2024-01-07] MEDS: XARELTO 15 MG PO (08:13)
--- NOTE | 2024-01-07 08:41 | CM ---
Spoke with patient and family in room .
Offered VN at dc.
Family requested [facility] Referral placed.
PLAN Home with Family and [facility] if accepted
[2024-01-07] MEDS: PULMICORT 0.5 MG INH (08:57)
--- NOTE | 2024-01-07 10:27 | W.PN.HOSP.TC ---
Today's Communication/Plan
-
cw diuresis
DC planning
Assessment / Plan
Assessment / Plan
A/P:� Patient is an 88y M with PMH significant for COPD, EFRAIN and hypertension who presents to ED for evaluation of LE edema and SOB that has been progressive over the past 3 weeks or so.
Acute CHF -with preserved EF.
�-Echo shows normal EF with moderate AAS without much significant changes on recent echo.
�-Patient feeling improved since admission. Improved weight to 199 pounds which is the lowest we have seen in the [facility]. also confirms it is the lowest weight.
�-Continue IV Lasix per cards
�- Cardiology following.
COPD
Restrictive Lung Disease
EFRAIN on CPAP
�- Patient admits to chronically poor compliance with his PAP therapy.
�- Reinforced need for adequate EFRAIN treatment to prevent long term care phlebotomist complications.
�- CPAP nightly during his stay here.
�- Follow-up with Pulm as an outpatient.
�- Continue inhaled medications for COPD.
- No active bronchospasm. Doubt COPD flare.
Atrial Fibrillation / Flutter
�- persistent.
��- Cardio eval noted .
� - cw rate control medications .Rate mostly under control.
��- Continue Xarelto for stroke risk reduction-based on the creatinine clearance decrease it to 50 mg.
Benign Hypertension
�- Stable.� Hold current BP medications to allow for effective diuresis.
�- Resume ARB if BP tolerates.
Cognitive impairment-patient has issues with orientation today but redirectable. Discussion with the today-patient also noted to be sometimes disoriented in his own house. Lately he has memory issues. No given diagnosis of dementia. They
noticed this changes ongoing for a bit. Advised to get neurocognitive testing as an outpatient for diagnosis of dementia
CKD III
�- Stable.� Renal function is at / near recent baseline.
�- Follow for changs with diuresis- slight increase in Cr noted - follow on diuretics for now
GERD
�- Stable.� Continue daily PPI.
Obesity due to excess calories
�- Stable.� Encourage healty diet and increased activity with goal of weight loss.
DVT Prophylaxis:� On Xarelto
Code Status:� Full
DC home if stable from cardiology standpoint
Anticipated Discharge: Today
Subjective/Interval History
-
Date of Service: January 07, 2024
Patient is all dressed up and ready to go. Awaiting his cardiology visit.
He states his breathing has improved greatly. Not short of breath currently. No cough.
He also feels his lower extremity which are hard to touch have softened and improved.
Objective Data
-
Labs:
Laboratory Results
01/07/24
06:22
Sodium 139
Potassium 3.8
Chloride 97 L
Carbon Dioxide 32 H
BUN 44 H
Creatinine 1.6 H
Glucose 96
Calcium 9.4
Vital Signs:
Vital Signs
Temp Pulse Resp BP Pulse Ox
98.2 F 55 16 141/90 98
01/07/24 07:00 01/07/24 09:00 01/07/24 09:00 01/07/24 07:00 01/07/24 09:00
I&O
01/06/24 01/07/24 01/08/24
06:59 06:59 06:59
Intake Total 1140 / 1140 600 / 600
Output Total 1050 / 1050 250 / 250 700 / 700
Balance 90 / 90 350 / 350 -700 / -700
Review of Systems
-
Constitutional: Denies Fever or Chills
EENT: Denies Sore Throat
Cardiac: Denies Chest Pain
Abdomen/GI: Denies Abdominal Pain, Nausea or Vomiting
Neuro: Denies Dizzy
Physical Exam
-
General: No Apparent Distress
HEENT: Moist Mucous Membranes
Respiratory: Crackles (few in right base today) and Non Labored Respirations; Negative Wheezes or Accessory Resp Muscle Use
Cardiac: S1/S2 and Irregular Rhythm; Negative Tachycardic
GI: Soft
Musculoskeletal: Edema, Right Lower Extrem and Edema, Left Lower Extrem
Neuro: AO x 3
Data Reviewed
-
Labs: Labs Reviewed by me
[2024-01-07 11:00] VITALS: BP 145/88
--- NOTE | 2024-01-07 12:31 | W.PN.CARDCBS ---
Today's Communication / Plan
-
Okay for discharge. Lasix 40 mg daily with basic metabolic panel in 1 week.
Continue Xarelto.
Will discharge on amlodipine but hold valsartan.
Cardiac follow-up is arranged
Impression / Plan
-
PCP: ДМИТРИЙ Herr
Associate Professor Of Automation: Dr. Barajas
Impression:
Presented 01/04/2023 with edema and SOB
Acute on chronic heart failure with preserved EF, proBNP
Atrial fibrillation w/ controlled ventricular response, unclear duration
CKD, stage 3
COPD
Restrictive Lung Disease
EFRAIN on CPAP
Obesity
A-Fib / Flutter
Chronic anti-coagulation with Xarelto
PVCs
RBBB
Prostate Cancer
s/p Radical Prostatectomy
GERD/Gastritis
Hypertension
Echo 06/02/2021: EF 55 to 60%, mild concentric LVH. Stage I DD, mild to moderate MR, mild to moderate with peak/mean gradient 31/16 mmHg with JEREMIAH 1.1 cm�. Mild TR with PAP 31 mmHg.
Lexiscan nuclear stress test 03/21/22 with normal perfusion. EF 60%.
Echo 01/06: EF 50 to 55%, moderate , mild to moderate MR. PA pressure 40
Plan:
Patient is an 88 YOM w/ past medical history of hypertension, paroxysmal atrial fibrillation/flutter on chronic anticoagulation, hyperlipidemia, PVCs, prostate cancer s/p prostatectomy, COPD, restrictive lung disease and sleep apnea with
non-compliance with CPAP. He was seen by his outpatient physical meteorologist 01/04/2023 and complained of ongoing shortness of breath, orthopnea and lower extremity edema and was referred to the emergency department. On arrival to emergency department
patient was noted to be in atrial fibrillation with controlled ventricular response with PVCs. Chest x-ray demonstrated stable elevation of right hemidiaphragm and stable scarring/atelectasis of lower lobes. proBNP mildly elevated at 1040.
Troponin x 3 negative. Patient was provided 40 mg IV Lasix in emergency department.
-He has diuresed well. Okay to discharge home on 40 mg of Lasix p.o. daily. Creatinine at 1.6. Repeat basic met in 1 week.
-Patient is now in atrial fibrillation with controlled ventricular response. He has a history of PAF. He is maintained on Xarelto as outpatient. He does admit to noncompliance with his CPAP recently which could have triggered his atrial
fibrillation. Continue to monitor on telemetry.
-History of hypertension on Norvasc and Valsartan. Continue to hold valsartan. Okay to restart amlodipine.
-COPD/restrictive lung disease and EFRAIN w/ non-compliance w/ CPAP. Needs to have better compliance w/ CPAP to help reduce risk of PAF. Pulmonary is in process of arranging new CPAP mask.
Progress Note - Associate Professor Of Automation
Subjective
Date of Service: January 07, 2024
Breathing is overall improved. He denies chest pains. No new palpitations.
Objective
Labs:
01/06/24 07:36
01/07/24 06:22
Labs
Hgb 12.1 g/dL (13.0-18.0) L 01/06/24 07:36
Hct 37.2 % (39.0-52.0) L 01/06/24 07:36
Plt Count 187 10^3/uL (130-400) 01/06/24 07:36
Sodium 139 mmol/L (135-145) 01/07/24 06:22
Potassium 3.8 mmol/L (3.5-5.1) 01/07/24 06:22
BUN 44 mg/dl (9-20) H 01/07/24 06:22
Creatinine 1.6 mg/dL (0.7-1.3) H 01/07/24 06:22
Glucose 96 mg/dl (70-99) 01/07/24 06:22
Troponins
01/04/24 01/05/24 01/05/24
17:23 00:25 07:08
Troponin I < 0.012 < 0.012 0.016 D
01/05/24
12:42
Troponin I 0.012
Vital Signs and I&O:
Vital Signs
Temp Pulse Resp BP Pulse Ox
98.3 F 69 18 145/88 96
01/07/24 11:00 01/07/24 11:00 01/07/24 11:00 01/07/24 11:00 01/07/24 11:00
Vital Signs
Temp Pulse Resp BP Pulse Ox
98.3 F 69 18 145/88 96
01/07/24 11:00 01/07/24 11:00 01/07/24 11:00 01/07/24 11:00 01/07/24 11:00
Intake & Output
01/05/24 01/06/24 01/07/24 01/08/24
06:59 06:59 06:59 06:59
Intake Total 240 / 240 1140 / 1140 600 / 600
Output Total 1450 / 1450 1050 / 1050 250 / 250 700 / 700
Balance -1210 / -1210 90 / 90 350 / 350 -700 / -700
Physical Exam
Physical Exam
GEN: No distress, awake, Ox3
HEENT: supple, anicteric, mmm
LUNGS: CTA, no wheezes/rales
CV: irreg, S1/S2, 1/6 syst LSB, no gallop
ABD: soft, BS+, NT/ND
EXT: No edema
NEURO: Gross non-focal
SKIN: No rash
--- NOTE | 2024-01-07 12:57 | W.DS.TRANS ---
DC Summary - Poacher Operator
-
Discharge Instructions:
Discharge Diagnosis/Procedures Acute on chronic CHF decompensation with
preserved EF
Diet Low Cholesterol,2 Gram Sodium
Activity As tolerated
Driving Restrictions As prior to admission
Blood Work BMP blood work in one week -arrange it through
yourPCP
Other Services VN,PT
Specialty Instructions Weigh Daily
Stop these medications: losartan
Instructions: *[facility] Heart Failure Instructions
Stand-Alone Forms:
Changes to Home Medications: Yes
Discharge Medications:
DC Medications w/original date entered in [employer]
albuterol sulfate 90 mcg/actuation aerosol inhaler (Ventolin HFA) 2 puff inhalation 6XD PRN SOB 01/04/24
amlodipine 5 mg tablet (Norvasc) 5 mg PO DAILY Blood Pressure 01/04/24
atorvastatin 10 mg tablet (Lipitor) 10 mg PO HS High Cholesterol 01/04/24
budesonide 180 mcg/actuation breath activated powder inhaler (Pulmicort Flexhaler) 2 inh inhalation BID Lung/Breathing Issues 01/04/24
esomeprazole magnesium 20 mg capsule,delayed release (Nexium) 20 mg PO DAILY Gastrointestinal Issue 01/04/24
melatonin 5 mg tablet 5 mg PO HS PRN sleep 01/04/24
vitamins A,C,B-haoa-rrcuqn 2,148 mcg-113 mg-45 mg-17.4 mg tablet (PreserVision AREDS) 1 tab PO DAILY Supplement 01/04/24
furosemide 40 mg tablet (Lasix) 40 mg PO DAILY #30 tabs 01/07/24
rivaroxaban 15 mg tablet (Xarelto) 15 mg PO DAILY #30 tabs 01/07/24
Home Medication Changes
Xarelto dose decreased from 20 to 15 mg based on renal function
Lasix increased to 40 mg
Discontinue medication-losartan
Pending Results: No
--- NOTE | 2024-01-07 13:44 | CM ---
MD entered order for discharge.
Spoke with patient and in room.
Pt anxious for discharge.
IMM reviewed with IMM signed on chart.
Referral placed in care port yesterday.
PLAN Home with Family and [facility]
== END 2024-01-07 13:47 | disposition home health service (06) | DRG 291 ==
LOC: 4 EAST ACU 20:28
PROVIDERS: ADMITTING PHYSICIAN Hospitalist; ATTENDING PHYSICIAN Internal Medicine; CONSULT PHYSICIAN Internal Medicine Cardiovascular Disease; EMERGENCY PHYSICIAN Student in an Organized Health Care Education/Training Program; FAMILY PHYSICIAN Nurse Practitioner
PROC: 5A09357 Assistance with Respiratory Ventilation, Less than 24 Consecutive Hours, Continuous Positive Airway Pressure (ICD-10-PCS; 2024-01-05)
DX: I13.0 Hypertensive heart and chronic kidney disease with heart failure and stage 1 through stage 4 chronic kidney disease, or unspecified chronic kidney disease (principal); I50.33 Acute on chronic diastolic (congestive) heart failure; I45.2 Bifascicular block; J98.11 Atelectasis; G47.33 Obstructive sleep apnea (adult) (pediatric); N18.30 Chronic kidney disease, stage 3 unspecified; J98.4 Other disorders of lung; E78.5 Hyperlipidemia, unspecified; I48.0 Paroxysmal atrial fibrillation; D64.9 Anemia, unspecified; K21.9 Gastro-esophageal reflux disease without esophagitis; J44.9 Chronic obstructive pulmonary disease, unspecified; K29.70 Gastritis, unspecified, without bleeding; E66.09 Other obesity due to excess calories; Z68.35 Body mass index [BMI] 35.0-35.9, adult; Z85.46 Personal history of malignant neoplasm of prostate; Z87.891 Personal history of nicotine dependence; Z91.030 Bee allergy status; Z79.01 Long term (current) use of anticoagulants; Z79.51 Long term (current) use of inhaled steroids; Z90.79 Acquired absence of other genital organ(s); Z91.199 Patient's noncompliance with other medical treatment and regimen due to unspecified reason
CPT/HCPCS: 71046; 80048; 80053; 82728; 83540; 83550; 83880; 84443; 84484; 85025; 85027; 93005; 93306; 94640; 94660; 96374; 97116; 97163; 97166; 97535; 99285; 99406

== ENCOUNTER → 2024-01-11 11:14 | Outpatient (REF) | payer MEDICARE, SELFPAY ==
[2024-01-11 17:05] LABS: Blood Urea Nitrogen 40 mg/dl (9-20); Carbon Dioxide 28 mmol/L (22-30); Chloride 102 mmol/L (98-107); Glucose 91 mg/dl (70-99); Potassium 4.1 mmol/L (3.5-5.1); Sodium 135 mmol/L (135-145); eGFR 44.78
== END ==
LOC: HWLAB 11:14
PROVIDERS: ATTENDING PHYSICIAN Nurse Practitioner
DX: I50.31 Acute diastolic (congestive) heart failure (principal)
CPT/HCPCS: 36415; 80048

== ENCOUNTER → 2024-04-15 08:12 | Outpatient (REF) | payer MEDICARE, SELFPAY ==
[2024-04-15 12:13] LABS: % Basophils 0.8 % (0-2); % Eosinophils 3.2 % (0-6); % Immature Granulocytes 0.1 % (0-0.5); % Lymphocytes 32.2 % (20.5-51.1); % Monocytes 11.2 % (1.7-9.3); % Neutrophils 52.5 % (42.2-75.2); Absolute Basophils 0.1 10^3/uL (0-0.2); Absolute Eosinophils 0.2 10^3/uL (0-0.7); Absolute Lymphocytes 2.3 10^3/uL (1.2-3.4); Absolute Monocytes 0.8 10^3/uL (0.1-0.6); Absolute Neutrophils 3.8 10^3/uL (1.4-6.5); Hematocrit 41.9 % (39.0-52.0); Hemoglobin 13.1 g/dL (13.0-18.0); Mean Corp Hgb Conc. 31.3 g/dL (33.0-37.0); Mean Corpuscular Hgb 23.2 pg (27.0-31.0); Mean Corpuscular Volume 74.2 fL (80.0-94.0); Mean Platelet Volume 10.4 fL (7.4-10.4); Nucleated Red Blood Cells % 0 % (-); Platelet Count 187 10^3/uL (130-400); Red Blood Cell Count 5.65 10^6/uL (4.70-6.10); Red Cell Dist. Width 15.4 % (11.5-14.5); White Blood Cell Count 7.3 10^3/uL (4.8-10.8)
[2024-04-15 12:32] LABS: ALT (SGPT) 19 U/L (0-50); AST (SGOT) 29 U/L (17-59); Albumin 4.3 g/dl (3.5-5.0); Alkaline Phosphatase 55 U/L (38-126); Blood Urea Nitrogen 48 mg/dl (9-20); Calcium 9.5 mg/dl (8.4-10.2); Carbon Dioxide 28 mmol/L (22-30); Chloride 101 mmol/L (98-107); Glucose 98 mg/dl (70-99); HDL Cholesterol 56 mg/dl; LDL Cholesterol, Calculated 77 mg/dl; Potassium 4.1 mmol/L (3.5-5.1); Sodium 138 mmol/L (135-145); Total Bilirubin 1.2 mg/dl (0.2-1.3); Total Cholesterol 147 mg/dl (50-199); Total Protein 7.1 g/dl (6.3-8.2); Triglyceride 73 mg/dl (10-149); Very Low Density Lipoprotein 14 mg/dl (0-30)
== END ==
LOC: HWLAB 08:12
PROVIDERS: ATTENDING PHYSICIAN Nurse Practitioner
DX: I48.92 Unspecified atrial flutter (principal); D64.9 Anemia, unspecified; I10 Essential (primary) hypertension; I50.9 Heart failure, unspecified; E78.2 Mixed hyperlipidemia
CPT/HCPCS: 36415; 80053; 80061; 85025

== ENCOUNTER → 2024-07-22 16:31 | Outpatient (REF) | payer MEDICARE, SELFPAY ==
[2024-07-22 18:23] LABS: % Basophils 0.7 % (0-2); % Eosinophils 2.8 % (0-6); % Immature Granulocytes 0.2 % (0-0.5); % Lymphocytes 35.1 % (20.5-51.1); % Monocytes 8.7 % (1.7-9.3); % Neutrophils 52.5 % (42.2-75.2); Absolute Eosinophils 0.2 10^3/uL (0-0.7); Absolute Lymphocytes 2.1 10^3/uL (1.2-3.4); Absolute Monocytes 0.5 10^3/uL (0.1-0.6); Absolute Neutrophils 3.1 10^3/uL (1.4-6.5); Hematocrit 40.5 % (39.0-52.0); Hemoglobin 12.7 g/dL (13.0-18.0); Mean Corp Hgb Conc. 31.4 g/dL (33.0-37.0); Mean Corpuscular Hgb 23.2 pg (27.0-31.0); Mean Platelet Volume 10.3 fL (7.4-10.4); Nucleated Red Blood Cells % 0 % (-); Platelet Count 189 10^3/uL (130-400); Red Blood Cell Count 5.47 10^6/uL (4.70-6.10); Red Cell Dist. Width 15.4 % (11.5-14.5)
[2024-07-22 18:25] LABS: ALT (SGPT) 17 U/L (0-50); AST (SGOT) 29 U/L (17-59); Albumin 4.2 g/dl (3.5-5.0); Alkaline Phosphatase 65 U/L (38-126); Blood Urea Nitrogen 31 mg/dl (9-20); Calcium 9.3 mg/dl (8.4-10.2); Carbon Dioxide 27 mmol/L (22-30); Chloride 100 mmol/L (98-107); Glucose 93 mg/dl (70-99); Potassium 4.6 mmol/L (3.5-5.1); Sodium 140 mmol/L (135-145); Total Bilirubin 0.7 mg/dl (0.2-1.3); Total Protein 6.9 g/dl (6.3-8.2); eGFR 58.17
== END ==
LOC: CLAB 16:31
PROVIDERS: ATTENDING PHYSICIAN Nurse Practitioner
DX: I10 Essential (primary) hypertension (principal); N18.31 Chronic kidney disease, stage 3a; D64.9 Anemia, unspecified
CPT/HCPCS: 36415; 80053; 85025

== ENCOUNTER → 2024-07-29 15:10 | Outpatient (REF) | payer MEDICARE, SELFPAY | LOC: HWRAD 15:10 | PROVIDERS: ATTENDING PHYSICIAN Nurse Practitioner | DX: I48.92 Unspecified atrial flutter (principal); F03.90 Unspecified dementia, unspecified severity, without behavioral disturbance, psychotic disturbance, mood disturbance, and anxiety | CPT/HCPCS: 70450 ==

== ENCOUNTER 2024-08-02 13:17 | Inpatient (IN) | payer MEDICARE, SELFPAY ==
[2024-08-01] VITALS (12 sets, daily range): BP systolic 132–178; BP diastolic 74–104; PULSE 53; O2SAT 95; BMI 32.6; BMI 31.7
--- NOTE | 2024-08-01 10:11 | ED.GENMED ---
History of Present Illness
General
Chief Complaint: Musculo-Skeletal Complaint
Source: patient
Time Seen by Provider: 08/01/24 10:03
History of Present Illness
History of Present Illness:
89yoM with a history of CHF, atrial fibrillation, COPD, EFRAIN on CPAP, CKD, and dementia presenting via EMS for evaluation of back pain. Patient was doing yard work 3 days ago and he developed pain later that evening. Patient reports pain in his
right lower back. He also intermittently has pain in his right thigh. He initially took unkp-[id number] medications for his pain, he is unsure of the name. He has not taken any medications today. Due to his ongoing pain, EMS was activated.
Patient is otherwise asymptomatic and denies any fevers, incontinence, saddle anesthesia, abdominal pain. No prior history of malignancy. He denies any prior back surgeries or injuries.
Phy Exam
General Physical Exam
General Presentation: well appearing and no apparent distress
General age: appears stated age
General Skin: warm and dry
General Habitus: normal
General Mental: alert
ENT Exam
ENT Exam: normocephalic
Pulmonary Exam
Pulmonary Exam: no respiratory distress
Gastrointestinal Exam
Gastrointestinal Exam: non tender, soft and non distended
Musculoskeletal Exam
Musculoskeletal Exam: back pain (+Tenderness in R paraspinal lumbar region. No midline bony pain. ) and other (No reproducible tenderness to the R hip or thigh. ROM of R hip decreased. No pitting edema to the leg or clinical signs of DVT. 2+ DP
pulse and sensation intact. )
Skin Exam
Skin Exam: normal color and warm/dry
Psychiatric Exam
Psychiatric Exam: normal mood/affect
Course
Orders/Labs/Results
Orders:
Orders
08/01/24 10:13
Acetaminophen [Tylenol] 1,000 mg PO NOW STA
Oxycodone [Roxicodone] 5 mg PO NOW STA
CR Lumbar Spine Comp Min 4 Vw* Urgent
Comment:
Reason For Exam: low back pain
Hip, Right 2-3 Views [CR Hip - RT w/wo Pel 2-3 Vw*] Urgent
Comment:
Reason For Exam: hip pain
Include a pelvis x-ray?: No
08/01/24 10:15
Lidocaine [Lidocaine 4% Patch] 1 patch TOPICAL DAILY
Apply Lidocaine patch(s) to:: low back
08/01/24 10:36
CR Knee- Right 4 Or More View* Urgent
Comment:
Reason For Exam: Pain
08/01/24 10:37
CR Femur - Right Min 2 Vw Urgent
Comment:
Reason For Exam: Pain
08/01/24 11:18
Pt Eval And Treat Urgent
Activity Level: Out of Bed- Ad Vita
08/01/24 11:58
Case Management Consult ONCE
Case Management Consult: Discharge Planning
08/01/24 13:25
IV Insert/Care/Rem.- Treatment PRN
08/01/24 13:38
Complete Blood Count/With Diff Urgent
08/01/24 14:47
Lower Ext Right wo Contrast CT [CT Lower Ext W/o Iv Cont Rt] Urgent
Comment: x-ray without frcture
Reason For Exam: Right Hip - cannot bear weight, + pain
08/01/24 14:52
Admit/Transfer Patient As Directed
Co-Sign Provider:
Level of Care: Observation services
Assign to:: Medical/Surgical
Physician / Group: Kaelyn Spencer
Diagnosis: right hip pain, ambulatory dysfunction
Reason for Hospitalization: right hip pain, ambulatory dysfunction
PRN Pain Medication Management As Directed
May give lesser potent ordered pain med per pt: Yes
preference::
Protocol:: Medication orders for pain may be administered in a
manner that supports deferring to patient preference
when the pt is:
- Requesting an ordered lesser potent pain medication.
Least to most potent pain medications are defined
as: acetaminophen < NSAID < tramadol < opioids
(morphine, oxycodone, hydromorphone).
- Requesting a lesser dose of the same medication IF
ORDERED.
- Requesting a less intrusive route of administration
if both routes are prescribed by the provider (PO <
IV).
08/01/24 14:54
Code Status As Directed
Resuscitation Status: Full Code
08/01/24 14:57
Comprehensive Metabolic Panel Urgent
Abnormal Lab Results
08/01/24
13:38
MCV 70.9 L fL
(80.0-94.0)
MCH 23.5 L pg
(27.0-31.0)
RDW 15.2 H %
(11.5-14.5)
Absolute Monos (auto) 0.8 H 10^3/uL
(0.1-0.6)
08/01/24 13:38
Vital Signs
Initial and Last Documented VS:
Initial Vital Signs
Temp Pulse Resp BP Pulse Ox
98.2 F 86 16 146/98 95
08/01/24 10:06 08/01/24 10:06 08/01/24 10:06 08/01/24 10:06 08/01/24 10:06
Last Documented Vital Signs
Temp Pulse Resp BP Pulse Ox
98.2 F 66 16 138/100 95
08/01/24 10:06 08/01/24 14:42 08/01/24 14:42 08/01/24 14:42 08/01/24 14:42
MDM/Problems Addressed
Differential Diagnosis Includes:
89yoM here with R lower back and leg pain x 2-3 days. He reports doing yard work before his symptoms began although family denies this. Hx of underlying dementia. No red flags in history including no fevers, saddle anesthesia, incontinence. He is
afebrile and hemodynamically stable. He is well-appearing in no acute distress. There is reproducible tenderness to the right lumbar paraspinal region. RLE is neurovascularly intact. Differential diagnosis includes but is not limited to:
Fracture, lumbar radiculopathy, sciatica, no clinical signs of DVT
Initial ED plan: Check right hip, femur, knee, and lumbar spine x-rays. Oxycodone, Tylenol, and lidocaine patch for pain.
*Critical Care Note
Total Time (30-74mins, 75-104mins- exclusive of procedures): Not Applicable
Update Note
Update Note:
Imaging is negative for acute abnormalities and fractures. Degenerative changes noted. Patient was unable to stand with nursing staff. PT consulted who evaluated patient at bedside. PT is recommending short-term rehab. Case management unable to
place patient from the ED. He was admitted for further management.
ED Attending Note
-
Portions of this chart may have been created with voice recognition software.� Occasional wrong word or��sound alike� substitutions may have occurred due to the inherent limitations of voice recognition software.
Discharge Plan
Departure
Patient Disposition: Admit
Date of Disposition: 08/01/24
Time of Disposition: 13:49
Presentation/result/management discussed w/ accepting MD/DO: Hospitalist
Discharge Problem:
Low back pain radiating to right leg, Weakness of right lower extremity
Interventions
Interventions:
*Risk Screen - Suicide Last Done: 08/01/24 10:06
*General Assessment Last Done: 08/01/24 10:06
*Neglect/Abuse Screening Last Done: 08/01/24 10:06
ED- Fall Risk Assessment Last Done: 08/01/24 10:06
*ED COVID-19 Vaccine History Last Done: 08/01/24 10:06
ED-Musculoskeletal Assessment Last Done: 08/01/24 10:36
--- NOTE | 2024-08-01 10:21 | EDRN ---
Pt insisted on standing to void and could not stand almost fell to floor. Pt unable to return to stretcher w/out max assist of two lifting him back on stretcher. Pt had to void lying on stretcher.
[2024-08-01] MEDS: ROXICODONE 5 MG PO ×2 (10:27→15:35)
[2024-08-01] MEDS: TYLENOL 1000 MG PO (10:28)
[2024-08-01] MEDS: LIDOCAINE 4% PATCH 1 PATCH TOPICAL (10:29)
--- NOTE | 2024-08-01 11:48 | EDRN ---
PT in room w/pt at this time.
--- NOTE | 2024-08-01 12:07 | EDRN ---
Pt has decreased strength in R leg per PT and unable to stand or ambulate for them. Marily NATARAJAN was informed by PT.
--- NOTE | 2024-08-01 12:30 | EDRN ---
Raw Stock Machine Loader in w/ pt and family as well as Marily NATARAJAN.
[2024-08-01 13:44] LABS: % Basophils 0.6 % (0-2); % Eosinophils 1.5 % (0-6); % Immature Granulocytes 0.3 % (0-0.5); % Lymphocytes 23.4 % (20.5-51.1); % Monocytes 8.9 % (1.7-9.3); % Neutrophils 65.3 % (42.2-75.2); Absolute Basophils 0.1 10^3/uL (0-0.2); Absolute Eosinophils 0.1 10^3/uL (0-0.7); Absolute Lymphocytes 2.1 10^3/uL (1.2-3.4); Absolute Monocytes 0.8 10^3/uL (0.1-0.6); Absolute Neutrophils 5.9 10^3/uL (1.4-6.5); Hematocrit 41.6 % (39.0-52.0); Hemoglobin 13.8 g/dL (13.0-18.0); Mean Corp Hgb Conc. 33.2 g/dL (33.0-37.0); Mean Corpuscular Hgb 23.5 pg (27.0-31.0); Mean Corpuscular Volume 70.9 fL (80.0-94.0); Mean Platelet Volume 9.9 fL (7.4-10.4); Nucleated Red Blood Cells % 0 % (-); Platelet Count 183 10^3/uL (130-400); Red Blood Cell Count 5.87 10^6/uL (4.70-6.10); Red Cell Dist. Width 15.2 % (11.5-14.5)
--- NOTE | 2024-08-01 13:45 | EDRN ---
Marily NATARAJAN spoke to family about admission.
--- NOTE | 2024-08-01 13:53 | CM ---
Addendum entered by Jeniffer Anderson 08/01/24 16:11:
Naya- daughter can also be called with any updates. Her number is: [phone].
Addendum entered by Jeniffer Anderson 08/01/24 15:48:
Patient lives at home with and daughter. He has 8 steps to enter in his multi-level home. He does not drive due to his dementia. He usually utilizes a wheelchair. He said if he is able to lock it on his own, he is able to stand and pivot in out
of it independently. He denied an +SDOHs. He is retired.
Addendum entered by Jeniffer Anderson 08/01/24 15:42:
Patient's family agreeable to [facility] [place] [facility].
Original Note:
CM consult placed for placement. Reviewed PT recommendations. CM introduced self and role. Patient's daughter and also at bedside. CM explained that referrals would have to placed in order to then obtain an insurance authorization from [employer]
for STR.
Daughter and patient's asked for a list of STR facilities in the area. They chose the facilities they would like referrals to placed.
Referrals placed. Awaiting responses from facilities.
--- NOTE | 2024-08-01 14:20 | HPS.HSE ---
Addendum entered and electronically signed by Kaelyn Spencer MD 08/01/24 17:32:
patient denies saddle anesthesia or bowel/bladder changes
Original Note:
Family Physician
-
Family Physician: ДМИТРИЙ Herr
Chief Complaint
-
back pain
History of Present Illness
Mr. Ryan Foster is a 89 yo man with hx obesity, EFRAIN on CPAP, paroxysmal Atrial Fibrillation, prostate CA s/p radical prostatectomy, GERD, HFpEF presents with pain in right lower back and hip pain.
Patient has some early dementia and is overwhelmed being in the ER, poor historian. He states pain has been lower back and right hip. He had trouble using walker at home. He tried to get up with PT in the ER but cannot bear any weight.
No chest pain, no shortness of breath, no fevers/chills, no abdominal pain, no nausea/vomiting.
Prior to pain he did not use walker or cane. Lives at home with .
Medical History
Past Medical History
Past Medical History: Reports Other
Additional Past Medical History:
COPD
Restrictive Lung Disease
EFRAIN on CPAP
Obesity
A-Fib / Flutter
Prostate Cancer
GERD
Hypertension
Past Surgical History: Reports Other
Additional Past Surgical History:
Radical Prostatectomy
Social History
Tobacco: Former Smoker (Quit smoking about 20 years ago. > 40 pack years total use.)
Alcohol: Occasional
Drug: None
Personal:
Living: With Family
Family History
Family History: Other (Father: CAD Mother: Longevity)
Allergies / Home Medications
Allergies reflects when Allergies were last updated in [facility].
Home Medications with original date entered in [facility] [facility]
Allergy/Medication List:
Allergies
Allergy/AdvReac Type Severity Reaction Status Date / Time
Bee Stings Allergy Severe Anaphylaxis Uncoded 08/01/24 10:05
Home Medications
amlodipine 5 mg tablet (Norvasc) 5 mg PO DAILY Blood Pressure 01/04/24
atorvastatin 10 mg tablet (Lipitor) 10 mg PO HS High Cholesterol 01/04/24
budesonide 180 mcg/actuation breath activated powder inhaler (Pulmicort Flexhaler) 2 inh inhalation R BID Lung/Breathing Issues 01/04/24
esomeprazole magnesium 20 mg capsule,delayed release (Nexium) 20 mg PO DAILY Gastrointestinal Issue 01/04/24
melatonin 5 mg tablet 5 mg PO HS sleep 01/04/24
vitamins A,C,N-nxnm-klmsaq 2,148 mcg-113 mg-45 mg-17.4 mg tablet (PreserVision AREDS) 1 tab PO DAILY Supplement 01/04/24
rivaroxaban 15 mg tablet (Xarelto) 15 mg PO DAILY #30 tabs 01/07/24
diphenhydramine 25 mg-acetaminophen 500 mg tablet (Tylenol PM Extra Strength) 3 - 4 tab PO HSPRN PRN sleep 08/01/24
furosemide 40 mg tablet (Lasix) 40 mg PO HS 08/01/24
therapeutic multivitamin 1 tab PO DAILY 08/01/24
Review of Systems
-
History Source: Patient
A 12 point ROS was completed and negative except as noted: Yes
Physical Exam
Vital Signs
Vital Signs
Temp Pulse Resp BP Pulse Ox
98.2 F 77 16 178/96 95
08/01/24 10:06 08/01/24 13:00 08/01/24 13:00 08/01/24 13:00 08/01/24 13:00
Physical Exam
General: No Apparent Distress
HEENT: PERRLA
Respiratory: Clear; No Wheezes
Cardiac: S1/S2 and Regular Rhythm
GI: Non Tender
Musculoskeletal: No Edema and Other (can flex hip; no LE swelling; no pain on passive flexion )
Skin: Warm and Dry; No Rash
Neuro: AO x 3
Psych: Calm
Laboratory Results
-
08/01/24 13:38
Laboratory Results
Total Bilirubin Cancelled 08/01/24 13:38
AST Cancelled 08/01/24 13:38
ALT Cancelled 08/01/24 13:38
Alkaline Phosphatase Cancelled 08/01/24 13:38
Data Reviewed
-
Diagnostic Radiology: Report Reviewed by me
Lab Data: Labs Reviewed by me
Impression/Plan
-
Mr. Ryan Foster is a 89 yo man with hx obesity, EFARIN on CPAP, paroxysmal Atrial Fibrillation, prostate CA s/p radical prostatectomy, GERD, HFpEF presents with pain in right lower back.
Triage VS: T 98.2, P 86, RR 16, BP 146/98, SpO2 95%
LABS: WBC 9, Hg 13.8, PLT 183
HIP/KNEE/FEMUR
IMPRESSION:
No acute osseous abnormality of the right hip, femur, or knee.
Chronic findings as above.
LUMBAR SPINE X-RAY
IMPRESSION:
No acute osseous abnormality of the lumbar spine.
Multilevel lumbar spondylosis as above.
MAR: Tylenol, Lidocaine, Oxycodone x 1
Right lower Back Pain
-patient unable to magnetic grinder operator the ER and PT recommending short term management; CM unable to place patient today
-will obtain CT Hip
-pain control: lidocaine patch; start gabapentin 100mg PO qhs
-oxy PRN severe pain
-PT/OT and eventual placement
paroxysmal afib
-CLOCK ASSEMBLER Xarelto
HFpEF
-CLOCK ASSEMBLER Lasix
Essential HTN
-CLOCK ASSEMBLER Amlodipine
DVT PPx Xarelto
FULL CODE
--- NOTE | 2024-08-01 14:40 | EDRN ---
Pt requested to move his bowels and placed on bedpan. Pt requested bedpan removal and voided just after bedpan removed. Dr. Spencer in room w/ pt. SST tube of blood was redrawn r/t hemolysis.
--- NOTE | 2024-08-01 14:50 | EDRN ---
Pt unable to tolerate bedpan and it was removed, Just after removal of bedpan pt voided all over diaper and bed. and visitors in room. This RN will return when MD is done in room.
--- NOTE | 2024-08-01 15:10 | EDRN ---
Pt was changed at this time. by 2 ED bag bundler.
[2024-08-01] MEDS: TYLENOL 650 MG PO (15:34)
--- NOTE | 2024-08-01 15:49 | EDRN ---
Pt medicated for back pain and SST blood tube redrawn and sentb to lab.
--- NOTE | 2024-08-01 16:07 | CM ---
Insurance auth info from [employer]:
BV: [id number]
Dr. Cao: [id number]
Report for BV:
Phone- [phone]
Fax- [phone]
[2024-08-01 16:12] LABS: ALT (SGPT) 19 U/L (0-50); AST (SGOT) 26 U/L (17-59); Albumin 4.7 g/dl (3.5-5.0); Alkaline Phosphatase 56 U/L (38-126); Blood Urea Nitrogen 26 mg/dl (9-20); Calcium 9.7 mg/dl (8.4-10.2); Carbon Dioxide 29 mmol/L (22-30); Estimated Creatinine Clearance 48 ml/min; Glucose 105 mg/dl (70-99); Total Bilirubin 1.6 mg/dl (0.2-1.3); Total Protein 7.3 g/dl (6.3-8.2); eGFR > 60.00
--- NOTE | 2024-08-01 16:20 | EDRN ---
Spouse of pt called at pt request to let her know of pt's admit bed number. Left her a message on her cell phone to call me back.
--- NOTE | 2024-08-01 16:25 | EDRN ---
Pt's called back and was informed pt's room number and he is on admission floor at this time.
[2024-08-01 16:28] LABS: Chloride 99 mmol/L (98-107); Potassium 3.6 mmol/L (3.5-5.1); Sodium 142 mmol/L (135-145)
--- NOTE | 2024-08-01 17:37 | PTCARENOTE ---
bp on arrival to unit 165/104, rechecked after 30 minutes 169/103, patient reporting some lower back pain. Dr Spencer made aware. orders received for neurontin. plan of care on going.
[2024-08-01] MEDS: NEURONTIN 100 MG PO (18:19)
[2024-08-01] MEDS: LIPITOR 10 MG PO (20:51)
[2024-08-01] MEDS: MELATONIN 5 MG PO (20:51)
[2024-08-02] MEDS: ROXICODONE 5 MG PO (03:44)
[2024-08-02 07:23] LABS: Hematocrit 41.5 % (39.0-52.0); Hemoglobin 13.6 g/dL (13.0-18.0); Mean Corp Hgb Conc. 32.8 g/dL (33.0-37.0); Mean Corpuscular Hgb 23.6 pg (27.0-31.0); Mean Corpuscular Volume 71.9 fL (80.0-94.0); Mean Platelet Volume 10.5 fL (7.4-10.4); Platelet Count 174 10^3/uL (130-400); Red Blood Cell Count 5.77 10^6/uL (4.70-6.10); Red Cell Dist. Width 15.2 % (11.5-14.5); White Blood Cell Count 9.6 10^3/uL (4.8-10.8)
[2024-08-02 07:24] VITALS: BP 150/91
[2024-08-02 07:49] LABS: Blood Urea Nitrogen 30 mg/dl (9-20); Calcium 9.3 mg/dl (8.4-10.2); Carbon Dioxide 25 mmol/L (22-30); Chloride 100 mmol/L (98-107); Direct Bilirubin 0.2 mg/dl (0.0-0.4); Estimated Creatinine Clearance 47 ml/min; Glucose 100 mg/dl (70-99); LDH 296 U/L (120-246); Potassium 4.2 mmol/L (3.5-5.1); Sodium 139 mmol/L (135-145); eGFR > 60.00
[2024-08-02 09:12] VITALS: BP 145/92; PULSE 86; O2SAT 95
[2024-08-02] MEDS: OCUVITE SOFTGEL 1 CAP PO (09:26)
[2024-08-02] MEDS: LIDOCAINE 4% PATCH 1 PATCH TOPICAL (09:27)
[2024-08-02] MEDS: NORVASC 5 MG PO (09:27)
[2024-08-02] MEDS: LASIX 40 MG PO (09:27)
[2024-08-02] MEDS: THERAGRAN 1 TABLET PO (09:27)
[2024-08-02] MEDS: XARELTO 15 MG PO (09:27)
[2024-08-02] MEDS: PROTONIX 40 MG PO (09:33)
[2024-08-02] MEDS: FLUSH (NSS) 1 FLUSH IV (09:36)
[2024-08-02 09:57] VITALS: BP 145/92; PULSE 86
--- NOTE | 2024-08-02 10:05 | W.PN.HOSP.TC ---
Today's Communication/Plan
-
see PN
Assessment / Plan
Assessment / Plan
89yo M with PMHx of prostatectomy, , HFpEF, restrictive lung disease, COPD, EFRAIN, afib on Xarelto, HTN, dementia, GERD, CKD stage 3 brought by his 2/2 lower back pain radiating to RLE for 3 days, CT showed DJD with disk bulge and some
improgement on thecal sac, pending MRI lumbar spine.
A/P:
#DJD
#Radiculopathy with disk bulge
pain mgmt
PT/OT
topical NSAIDs upon d/c
MRI lumbar due to subjective RLE weakness to r/u myelopathy
Patient has no saddle anesthesia or new urinary/bowel incontinence or constipation, no concern for cauda equina syndrome
Can bear weight on bedside assessment
#microcytosis
check iron
#Indirect bilirubinema
no concern for hemolysis with minimal LDH elevation
monitor LFT
#Restrictive lung disease
#Chronic COPD
#EFRAIN
#Chreonic HFpEF
#Moderate
#Afib, unspecified
#Essential HTN
#Dementia, unspecified
#CKD stage 3a
cont home meds
cont CPAP
DVT ppx on Xarelto
Full code
I have spent at least 58min reviewing chart, test results, communication with family and direct patient care
Anticipated Discharge: Within 24 hours
Subjective/Interval History
-
Date of Service: August 02, 2024
Objective Data
-
Labs:
Laboratory Results
08/02/24
06:26
WBC 9.6
Hgb 13.6
Hct 41.5
Plt Count 174
Sodium 139
Potassium 4.2
Chloride 100
Carbon Dioxide 25
BUN 30 H
Creatinine 1.1
Glucose 100 H
Calcium 9.3
Vital Signs:
Vital Signs
Temp Pulse Resp BP Pulse Ox
97.9 F 85 20 150/91 97
08/02/24 07:24 08/02/24 07:24 08/02/24 07:24 08/02/24 07:24 08/02/24 07:24
I&O
08/01/24 08/02/24 08/03/24
06:59 06:59 06:59
Intake Total 0 / 0
Output Total 300 / 300
Balance -300 / -300
Review of Systems
-
Unable to obtain full review of systems at this time due to: Dementia
History Source: Patient
Constitutional: Reports No Symptoms
Physical Exam
-
General: No Apparent Distress
HEENT: Normocephalic
Respiratory: Clear to Auscultation
Cardiac: Regular Rhythm
GI: Soft, Nontender and Nondistended
Genito-urinary: No Costovertebral Tender
Musculoskeletal: No Clubbing, No Cyanosis and No Edema
Neuro: Awake, Alert, Oriented and No Motor Deficits
Psych: Calm and Apparent Dementia
[2024-08-02 10:47] LABS: ALT (SGPT) 18 U/L (0-50); AST (SGOT) 30 U/L (17-59); Albumin 4.2 g/dl (3.5-5.0); Alkaline Phosphatase 43 U/L (38-126); Iron 102 ug/dl (49-181); Total Protein 6.8 g/dl (6.3-8.2)
[2024-08-02 10:56] LABS: Percent Saturation 35 % (20-50); Total Iron Binding Capacity 287 ug/dl (261-462)
[2024-08-02 12:15] LABS: Ferritin 50.6 ng/ml (17.9-464.0)
--- NOTE | 2024-08-02 13:15 | W.PN.UPDATE ---
Update Note
Progress Note Update
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
NeuroSx consult
#Urinary retention with b/l hydronephrosis
Tamsulosin/FInasteride
Lucas
Urology consult
[2024-08-02] MEDS: FLOMAX 0.4 MG PO (13:53)
[2024-08-02 14:39] LABS: Urine Albumin Negative (Neg - Trace); Urine Bilirubin Negative (Negative); Urine Character Clear (Clear); Urine Color Yellow; Urine Glucose Negative (Negative); Urine Ketone Negative (Negative); Urine Leukocyte Negative (Negative); Urine Nitrite Negative (Negative); Urine Occult Blood 3+ (Negative); Urine Urobilinogen Negative (Neg - 1+)
[2024-08-02 14:47] LABS: Urine Bacteria Few (Negative); Urine Red Blood Cell 21-25 /HPF (0-2); Urine Squamous Cell 0-2 /LPF (Few); Urine White Cell 0-2 /HPF (0-5)
--- NOTE | 2024-08-02 15:20 | CON.NS ---
Documented by User: Lu Garcia PA-C 08/02/24 16:22
Chief Complaint
-
back pain
History of Present Illness
Mr. Ryan Foster is a 89 yo man with hx obesity, EFRAIN on CPAP, paroxysmal Atrial Fibrillation, prostate CA s/p radical prostatectomy, GERD, HFpEF presents with pain in right lower back and hip pain. Patient seen with attending sitting in chair
in NAD. He is confused but oriented to person. States he had back pain but it is better. Denies any leg pain.
Review of Systems
-
12 point ROS reviewed and all are negative except for mentioned in HPI
Medication and Allergies
Home Medications
Home Medications
�Medication �Instructions �Recorded
amlodipine 5 mg tablet (Norvasc) 5 mg PO DAILY Blood Pressure 01/04/24
atorvastatin 10 mg tablet (Lipitor) 10 mg PO HS High Cholesterol 01/04/24
budesonide 180 mcg/actuation 2 inh inhalation R BID 01/04/24
breath activated powder inhaler Lung/Breathing Issues
(Pulmicort Flexhaler)
esomeprazole magnesium 20 mg 20 mg PO DAILY Gastrointestinal 01/04/24
capsule,delayed release (Nexium) Issue
melatonin 5 mg tablet 5 mg PO HS sleep 01/04/24
vitamins A,C,O-cvky-znuxgs 2,148 1 tab PO DAILY Supplement 01/04/24
mcg-113 mg-45 mg-17.4 mg tablet
(PreserVision AREDS)
rivaroxaban 15 mg tablet (Xarelto) 15 mg PO DAILY #30 tabs 01/07/24
diphenhydramine 25 3 - 4 tab PO HSPRN PRN sleep 08/01/24
mg-acetaminophen 500 mg tablet
(Tylenol PM Extra Strength)
furosemide 40 mg tablet (Lasix) 40 mg PO DAILY 08/01/24
therapeutic multivitamin 1 tab PO DAILY 08/01/24
Allergies
Allergies
Allergy/AdvReac Type Severity Reaction Status Date / Time
venom-honey bee Allergy BEE Verified 08/01/24 16:43
STING-ANAPHYLAXIS
Physical Exam
-
Exam:
Patient awake, alert, oriented xs 3
CN 2-12 grossly intact
speech: clear
motor: 5/5
sensation intact to crude touch
no swelling in LE
respiratory: non labored breathing
cardiac: rrr
skin: no rashes, lesions.
IMPRESSION:
1. SEVERE DISCOGENIC DEGENERATIVE DISEASE at T10/T11, T11/T12, L2/L3, L3/L4, and L5/S1.
2. MODERATE to SEVERE CENTRAL CANAL STENOSIS at L4/L5 secondary to 5 mm grade 1 anterolisthesis, a large diffuse disc bulge, and severe bilateral facet joint arthrosis. Moderate to severe right neural foraminal narrowing at L4/L5.
3. 4 mm grade 1 anterolisthesis of L5 on S1 secondary to severe bilateral facet joint arthrosis. Severe right lateral recess stenosis, severe right neural foraminal narrowing, and mild central canal stenosis at L5/S1.
4. Moderate central canal stenosis, moderate to severe left lateral recess stenosis, and moderate to severe right neural foraminal narrowing at L3/L4.
5. Mild to moderate central canal stenosis and moderate left lateral recess stenosis at L2/L3.
6. Moderate right convex curvature of the midlumbar spine.
7. 7 mm right lateral listhesis of L3 on L4.
8. MODERATE BILATERAL HYDROURETERONEPHROSIS and severe distention of the urinary bladder suggesting urinary bladder outlet obstruction.
Problems
-
Problem Status Onset Code
Weakness of right lower extremity R29.898
Low back pain radiating to right leg M54.50, M79.604
Assessment / Plan
-
89 y/o M with back pain and right hip pain
--imaging reviewed. MRI with degenerative disease with right sided foraminal stenosis. No acute neurosurgical intervention indicated.
--if patient continues with back and hip pain-recommend IGOR and steroid taper. No surgical intervention indicated.
--will sign off
--patient seen and examined with Dr. Bee.

Documented by User: Sonia Bee MD 08/02/24 16:28
Problems
-
Problem Status Onset Code
Weakness of right lower extremity R29.898
Low back pain radiating to right leg M54.50, M79.604
Assessment / Plan
-
89 y/o M with back pain and right hip pain
--imaging reviewed. MRI with degenerative disease with right sided foraminal stenosis. No acute neurosurgical intervention indicated.
--if patient continues with back and hip pain-recommend IGOR and steroid taper. No surgical intervention indicated.
--will sign off
--patient seen and examined with Dr. Bee.
ATTENDING ATTESTATION:
Patient seen and examined. Patient somewhat confused, reports that he has bilateral low back pain, with intermittent radiation in the past, down right leg. Currently denies any back pain, or radiation down the leg.
Motor examination is symmetric bilaterally in lower extremities.
MRI of the lumbar spine reviewed. No acute process is noted such as large disc herniation/acute disc herniation. Recommend physical therapy, pain control, and if persistent/refractory symptoms, consider epidural steroid injection.
No urgent neurosurgical intervention recommended.
[2024-08-02 15:23] VITALS: BP 120/80
--- NOTE | 2024-08-02 17:10 | CM ---
PT and OT recommend SNF.
Lucas cath placed.
Spoke with family at bedside .
They requested [facility] .
Will need auth after med sitter removed.
PLAN To SNf after auth .
--- NOTE | 2024-08-02 18:17 | CONS.URO ---
Consultation
-
Performing Provider: Peffer
Reason for Consultation: Urinary retention, bilateral hydronephrosis
Medical History
History of Present Illness
[address] Seymour
History of prostate cancer s/p prostatectomy years ago
He has biochemical recurrence which was treated with intermittent hormone therapy up until the COVID pandemic when patient stopped treatments
Since then his PSA has been followed and slowly trending upwards, with plan of restarting hormone therapy with any evidence of metastasis or short PSA reaching approx 10
PSA 4.6 04/2021
PSA 6.3 09/2023
Patient is a poor historian and unable to collect accurate HPI
Called patient's who did not answer this evening
Patient now admitted with lower back and R hip pain, rapidly progessive and unable to ambulate
Per history he did not note any recent new urinary symptoms or difficulty voiding
MRI was obtained showing spinal stenosis and severe degenerative disease
It also showed distended bladder with moderate bilateral hydroureteronephrosis concerning for ureteral reflux
Bladder scan showed PVR 420cc
No PRESTON
Past Medical History
Past Medical History: Other (COPD Restrictive Lung Disease EFRIAN on CPAP Obesity A-Fib / Flutter Prostate Cancer GERD Hypertension)
Past Surgical History: Urological (radical prostatectomy)
Social History
Tobacco: Former Smoker
Drug: None
Family History
Family History: Reviewed & Not Pertinent
Allergies/Home Medications
Allergies
Allergy/AdvReac Type Severity Reaction Status Date / Time
venom-honey bee Allergy BEE Verified 08/01/24 16:43
STING-ANAPHYLAXIS
Home Medications
�Medication �Instructions �Recorded �Confirmed �Type
amlodipine 5 mg tablet (Norvasc) 5 mg PO DAILY Blood Pressure 01/04/24 08/01/24 History
atorvastatin 10 mg tablet (Lipitor) 10 mg PO HS High Cholesterol 01/04/24 08/01/24 History
budesonide 180 mcg/actuation 2 inh inhalation R BID 01/04/24 08/01/24 History
breath activated powder inhaler Lung/Breathing Issues
(Pulmicort Flexhaler)
esomeprazole magnesium 20 mg 20 mg PO DAILY Gastrointestinal 01/04/24 08/01/24 History
capsule,delayed release (Nexium) Issue
melatonin 5 mg tablet 5 mg PO HS sleep 01/04/24 08/01/24 History
vitamins A,C,S-euqp-owgkhl 2,148 1 tab PO DAILY Supplement 01/04/24 08/01/24 History
mcg-113 mg-45 mg-17.4 mg tablet
(PreserVision AREDS)
rivaroxaban 15 mg tablet (Xarelto) 15 mg PO DAILY #30 tabs 01/07/24 08/01/24 Rx
diphenhydramine 25 3 - 4 tab PO HSPRN PRN sleep 08/01/24 08/01/24 History
mg-acetaminophen 500 mg tablet
(Tylenol PM Extra Strength)
furosemide 40 mg tablet (Lasix) 40 mg PO DAILY 08/01/24 08/01/24 History
therapeutic multivitamin 1 tab PO DAILY 08/01/24 08/01/24 History
Physical Exam
Vital Signs
Vital Signs
Temp Pulse Resp BP Pulse Ox
98 F 106 20 120/80 97
08/02/24 15:23 08/02/24 15:23 08/02/24 15:23 08/02/24 15:23 08/02/24 15:23
Lab / Testing Results
Laboratory Results
08/02/24 06:26
08/02/24 06:26
Physical Exam
General: Well Developed, Well Nourished and No Apparent Distress
Respiratory: Non Labored Respirations
GI: Soft and Non Tender
Genito-urinary: No Costovertebral Tend
Neuro: Awake and Alert
Psych: Calm and Apparent Dementia
Assessment / Plan
-
89M admitted with inability to stand and severe back pain, found to have acute vs chronic urinary retention, PVR 420cc, with bilateral hydroureteronephrosis
History of prostate cancer s/p prostatectomy with known biochemical recurrence
- Urinary retention may be related to acute spinal pathology or change in functional status vs chronic neurogenic bladder. Suspect ureteral reflux and retention are more likely chronic, though renal function does not seem to be impaired
- Low suspicion that urinary retention and reflux is the primary cause of his acute pain symptoms
- Recommend discharge with rock catheter in place for about 1 week or until ambulating and functional status closer to baseline. Trial of void in our office or at rehab.
- If retention persists, he may require further evaluation with cystoscopy or urodynamics
- Follow up with Dr. Seymour
- Obtain PSA to eval for progression since last test 09/2023
Data Reviewed
-
MRI: Image personally visualized and interpreted
Lab Data: Labs Reviewed
[2024-08-02] MEDS: LIPITOR 10 MG PO (20:42)
[2024-08-02] MEDS: MELATONIN 5 MG PO (20:42)
[2024-08-02] MEDS: BENADRYL 25 MG PO (20:44)
[2024-08-02 23:32] VITALS: BP 125/96
--- NOTE | 2024-08-03 01:04 | PTCARENOTE ---
Brant removed from room at 01:00 08/03/24.
[2024-08-03] MEDS: ROXICODONE 5 MG PO ×3 (02:42→20:21)
[2024-08-03] MEDS: THERAGRAN 1 TABLET PO (08:18)
[2024-08-03] MEDS: NORVASC 5 MG PO (08:18)
[2024-08-03] MEDS: PROTONIX 40 MG PO (08:18)
[2024-08-03] MEDS: OCUVITE SOFTGEL 1 CAP PO (08:18)
[2024-08-03] MEDS: LIDOCAINE 4% PATCH 1 PATCH TOPICAL (08:18)
[2024-08-03] MEDS: XARELTO 15 MG PO (08:18)
[2024-08-03] MEDS: LASIX 40 MG PO (08:18)
[2024-08-03] MEDS: FLOMAX 0.4 MG PO (08:18)
[2024-08-03 08:22] VITALS: BP 128/87
[2024-08-03 08:33] LABS: ALT (SGPT) 19 U/L (0-50); AST (SGOT) 31 U/L (17-59); Albumin 4.4 g/dl (3.5-5.0); Alkaline Phosphatase 53 U/L (38-126); Direct Bilirubin 0.2 mg/dl (0.0-0.4); LDH 237 U/L (120-246); Total Bilirubin 2.2 mg/dl (0.2-1.3)
--- NOTE | 2024-08-03 09:21 | CM ---
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 Room air. Lucas in place. Per nurse notes; Medsitter removed 08/03/24 01:00 hours. PT & OT
recommend skilled rehab.
Spoke with Elaina, [facility]; they will have an available bed on 08/05 and can accept at that time if patient remains off the Medsitter, calm/cooperative.
Received phone call from Ambarjonathan Osuna, daughter in [place] (karen [phone]); she will be the contact for d/c planning.
Daughter had questions about MRI results, urology consult and other clinical details about her father's care---> CM agreed to send message to Dr Kuo that she is requesting a call today.
Provided update to Ambar that [facility] would have an available bed on 08/05 as long as her father is able to stay off the Medsitter and remain calm/cooperative. She agrees with that plan.
Spoke with Admissions; requested family contacts updated to add daughter as primary contact.
Plan [facility] 08/05 if accepted and insurance approves.
[2024-08-03 09:34] LABS: Reticulocyte Count 1.6 % (0.4-2.8)
--- NOTE | 2024-08-03 11:54 | W.PN.HOSP.TC ---
Today's Communication/Plan
-
pending rehab
Assessment / Plan
Assessment / Plan
89yo M with PMHx of prostatectomy, , prostate CA s/p resection, HFpEF, restrictive lung disease, COPD, EFRAIN, afib on Xarelto, HTN, dementia, GERD, CKD stage 3 brought by his 2/2 lower back pain radiating to RLE for 3 days, CT showed DJD with
disk bulge, MRI showed multilevel foraminal narrowing. NeuroSx - no surgical intervention, might eventually need steroids injection. Found urinary retention and had Lucas placed, urology will follow as outpatient. Patient previously was treated with
hormonal therapy for prostate CA after reesection, then stopped during pandemic. PSA was trending upwards, plan was to restart treatment if any signs of metastatic disease or if PSA reaching 10. CM working on rehab placement - apparently
can be d/c on 08/05/24 as pr CM
A/P:
#DJD
#Radiculopathy with disk bulge
pain mgmt
PT/OT: rehab. As per CM -
topical NSAIDs upon d/c
MRI lumbar with multilevel DJD and disk bulge, multilevel foraminal narrowing. NeuroSx - no surgical intervention, might eventually need steroids injection
Patient has no saddle anesthesia or new urinary/bowel incontinence or constipation, no concern for cauda equina syndrome
Can bear weight on bedside assessment
#microcytosis
iron WNL
#Indirect bilirubinemia
normal retics
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
no concern for hemolysis with minimal LDH elevation
monitor LFT
#Hx of bladder CA s/p prostate resection
#Urinary retention, possible neurogenic bladder
Large PVR
Urology: following PSA, cont Lucas, outpatient follow up
#Restrictive lung disease
#Chronic COPD
#EFRAIN
#Chronic HFpEF
#Moderate
#Afib, unspecified
#Essential HTN
#Dementia, unspecified
#CKD stage 3a
cont home meds
cont CPAP
DVT ppx on Xarelto
Full code
I have spent at least 58min reviewing chart, test results, communication with family and direct patient care
Anticipated Discharge: > 48 hours
Subjective/Interval History
-
Date of Service: August 03, 2024
Objective Data
-
Labs:
Laboratory Results
08/03/24
07:42
Total Bilirubin 2.2 H
AST 31
ALT 19
Alkaline Phosphatase 53
Vital Signs:
Vital Signs
Temp Pulse Resp BP Pulse Ox
98.2 F 93 18 128/87 95
08/03/24 08:22 08/03/24 08:22 08/03/24 08:22 08/03/24 08:22 08/03/24 08:22
I&O
08/02/24 08/03/24 08/04/24
06:59 06:59 06:59
Intake Total 0 / 0 720 / 720
Output Total 300 / 300 1350 / 1350
Balance -300 / -300 -630 / -630
Review of Systems
-
Unable to obtain full review of systems at this time due to: Dementia
History Source: Patient
Physical Exam
-
General: No Apparent Distress
HEENT: Normocephalic
Respiratory: Clear to Auscultation
Cardiac: Regular Rhythm
GI: Soft, Nontender and Nondistended
Genito-urinary: No Costovertebral Tender
Musculoskeletal: No Clubbing, No Cyanosis and No Edema
Skin: Warm
Neuro: Awake, Alert, Oriented and AO x 3
Psych: Calm
--- NOTE | 2024-08-03 14:50 | PTCARENOTE ---
Pt becoming increasingly agitated. Continuously trying to get out of chair but has very unsteady gait. Family leaving bedside and asking for something to help calm him down. Tigertext sent to Dr. Kuo hesitant to order due to mental status and
confusion but states possibility of olanzapine later after neuro consult. Pt instructed to use call mahan for assistance so that he remains safe but he states he 'doesn't care if he dies' 'he's going home tonight if he has to call a taxi'.
--- NOTE | 2024-08-03 15:01 | PTCARENOTE ---
PCT had just left room after calming pt down a bit with conversation when chair alarm sounded and this RN entered room to find patient sitting on the floor between his chair and roommate's bed. Pt's roommate stated as soon as patient stood up he
lowered himself to sitting position on the ground. Roommate stated pt did not hit his head. Pt reports no pain and there are no visible injuries noted after skin assessment. Pt assisted back to chair - BP 138/81 HR 80 pulsox 95% RA. Dr. Kuo
notified and nursing supervisor type bar and segment. RN requested order for torsten chair with tray.
[2024-08-03 15:05] VITALS: BP 138/81
--- NOTE | 2024-08-03 16:03 | W.PN.URO.CBU ---
Today's Communication / Plan
-
Maintain rock
Trial of void in about 1 week
Neuro/neurosurg eval
Outpatienet follow up
Assessment / Plan
-
89M admitted with inability to stand and severe back pain, found to have acute vs chronic urinary retention, PVR 420cc, with bilateral hydroureteronephrosis
History of prostate cancer s/p prostatectomy with known biochemical recurrence
- Urinary retention may be related to acute spinal pathology or change in functional status vs chronic neurogenic bladder. Combination of this bladder dysfunction with acute lower back pain and gait abnormality could be concerning for MARA -
previously seen by neurosurgery who did not feel acute intervention was needed based on MRI and exam
- Recommend discharge with rock catheter in place for about 1 week or until ambulating and functional status closer to baseline. Trial of void in our office or at rehab.
- If retention persists, he may require further evaluation with cystoscopy or urodynamics
- Follow up with Dr. Seymour
Prostate cancer
- Biochemical recurrence s/p prostatectomy, previously tx with hormone therapy/Lupron but currently under PSA surveillance
- PSA increased to 7.6 from prior 6.3 09/2023 - steady increase but relatively slow doubling time
- Doubt significant involvement in current pathology but cannot completely rule this out
Diagnosis
-
Date of Service: August 03, 2024
-
Patient Diagnosis:
Prostate cancer
Urinary retention
Bilateral hydronephrosis
Post Op Day:
Subjective
-
No new events
Family states patient still unable to walk
Objective
-
Vital Signs
Temp Pulse Resp BP Pulse Ox
98.2 F 93 18 128/87 95
08/03/24 08:22 08/03/24 08:22 08/03/24 08:22 08/03/24 08:22 08/03/24 08:22
Intake and Output
08/02/24 08/03/24 08/04/24
06:59 06:59 06:59
Intake Total 0 / 0 720 / 720
Output Total 300 / 300 1350 / 1350
Balance -300 / -300 -630 / -630
Intake:
Oral fluids 0 / 0 720 / 720
Output:
Urine, Rock 550 / 550
Urine, Voided 300 / 300 800 / 800
Other:
Number of approximated SMALL 1
amounts of urine
How many times incontinent 1
SMALL amount urine
How many times incontinent 3
MODERATE amount urine
Laboratory Results
08/02/24 06:26
08/02/24 06:26
Physical Exam
-
General - well developed, well nourished, no acute distress
Chest - clear
Abdomen - soft, non-tender
- rock in place, clear
Apparent dementia
[2024-08-03 16:43] VITALS: BP 138/81
--- NOTE | 2024-08-03 16:53 | PTCARENOTE ---
Order for torsten chair given and [facility] and remains agitated about having to stay in hospital another night. Pt continuously asking to urinate but has rock in place.
--- NOTE | 2024-08-03 19:38 | PTCARENOTE ---
Pt somewhat more calm at this time after having dinner. Still occasionally pulling at tray.
--- NOTE | 2024-08-03 20:12 | CON.NEURO4 ---
Consultation - Neurology 4
-
CONSULTING PHYSICIAN: Javi Cruz MD
REFERRING PHYSICIAN: Hospitalist
DICTATED BY: Javi Cruz MD
DATE/TIME OF REQUEST: 08/03/2024
DATE/TIME OF CONSULTATION: 08/03/2024
Reason for Consultation: Weakness
History of Present Illness:
This is a 89 year old right) handed (male who has presented to the hospital with (chief complaint) of LE weakness. he gives a h/o obesity, EFRAIN on CPAP, paroxysmal Atrial Fibrillation, prostate CA s/p radical prostatectomy, GERD, HFpEF presents with
LBP with radiating into his hip. . He is confused but oriented to person. States he had back pain but it is better. Denies any leg pain.
he has multiple admission in the past
Currently his LBP is worsening and has difficulty standing and walking. He also has memory issues consistent with MCI
Past Medical History: As above
Surgical History: Prostate
Family History: [place]
Social History: Lives at home
Allergies: Bee
Home Medications: Addendum
Review of Symptoms:
Patient denies any fever, headache, chest pain, shortness of breath, GI or symptoms.
�Per the HPI.�All systems are reviewed negative except above.
�- Remove any of these problems that patient may have complained about in the HPI.
�- If patient is unresponsive, intubated or demented, say 'Per the HPI. I am unable to obtain a complete review of systems�because of patient's inability to provide history.'
Vital Signs:
The patient has a Temp 36.8 C Pulse80 Resp 18 BP 138/81 Pulse Ox 95 .
Physical Exam:
The patient is afebrile, heart sounds S1 and S2 are (regular, and chest is clear to auscultation bilaterally.
.
Neurologic Examination:
The patient is awake, confused and oriented x person and place. (He is able to follow commands and answer questions appropriately. There is no aphasia or dysarthria.
On cranial nerve assessment, pupils are 3 mm bilateral, round and reactive to light and accommodation. Visual maharaj are full. Extraocular movements are intact. Facial sensations are intact and bilaterally symmetrical, there is no facial asymmetry.
Hearing is intact bilaterally to normal conversation volume. Tongue palate and uvula are midline. Sternocleidomastoid strengths are full bilaterally.
Motor strengths are 4/5 bilateral upper and lower extremities on medical research [place] scale. There is no drift or involuntary movement noted.
Deep tendon reflexes are + bilateral upper and lower extremities and Babinski is absent bilaterally.
Sensations of pain, touch, temperature and vibration are decreased and bilaterally asymmetrical.. Coordination is intact by finger to nose bilaterally.
Rombergs +. Gait assisted
Lab Results: Addendum
Neuro Imaging: MRI L-SPINE:
1. SEVERE DISCOGENIC DEGENERATIVE DISEASE at T10/T11, T11/T12, L2/L3, L3/L4, and L5/S1.
2. MODERATE to SEVERE CENTRAL CANAL STENOSIS at L4/L5 secondary to 5 mm grade 1 anterolisthesis, a large diffuse disc bulge, and severe bilateral facet joint arthrosis. Moderate to severe right neural foraminal narrowing at L4/L5.
3. 4 mm grade 1 anterolisthesis of L5 on S1 secondary to severe bilateral facet joint arthrosis. Severe right lateral recess stenosis, severe right neural foraminal narrowing, and mild central canal stenosis at L5/S1.
4. Moderate central canal stenosis, moderate to severe left lateral recess stenosis, and moderate to severe right neural foraminal narrowing at L3/L4.
5. Mild to moderate central canal stenosis and moderate left lateral recess stenosis at L2/L3.
6. Moderate right convex curvature of the midlumbar spine.
7. 7 mm right lateral listhesis of L3 on L4.
8. MODERATE BILATERAL HYDROURETERONEPHROSIS and severe distention of the urinary bladder suggesting urinary bladder outlet obstruction.
Impression:
(Mr. / MsKenzie) KATHI SIU is a 89 year old M who has presented to the hospital with (symptoms/chief complaint).
Differentials for the patient's presentation include:
1. Lumbar radiculopathy
2. Normal Pressure hydrocephalus
Recommendations:
1. PT/OT
2. IGOR
3. B12 level
4. Xarelto 15mg daily
Discussed patient care with: Hospitalist
Allergies
-
Allergies
Allergy/AdvReac Type Severity Reaction Status Date / Time
venom-honey bee Allergy BEE Verified 08/01/24 16:43
STING-ANAPHYLAXIS
Vital Signs and Labs
-
Vital Signs and Labs:
Vital Signs
Temp Pulse Resp BP Pulse Ox
36.8 C 80 18 138/81 95
08/03/24 16:43 08/03/24 16:43 08/03/24 16:43 08/03/24 16:43 08/03/24 16:43
Lab Results
08/02/24 06:26
08/02/24 06:26
Sodium 139 mmol/L (135-145) 08/02/24 06:26
Potassium 4.2 mmol/L (3.5-5.1) 08/02/24 06:26
BUN 30 mg/dl (9-20) H 08/02/24 06:26
Glucose 100 mg/dl (70-99) H 08/02/24 06:26
Calcium 9.3 mg/dl (8.4-10.2) 08/02/24 06:26
Medications
-
Active Medications
Generic Name Dose Route Start Last Admin
Trade Name Freq PRN Reason Stop Dose Admin
Acetaminophen 650 mg 08/01/24 15:25 08/01/24 15:34
Acetaminophen 325 Mg Tablet PO 08/29/24 15:24 650 mg
Q4HPRN PRN Administration
mild pain/SMITH/temp> 100.4F
Acetaminophen 500 mg 08/01/24 16:50
Acetaminophen 500 Mg Tablet PO 08/29/24 16:49
HSPRN PRN
SLEEP
Albuterol 2 puff 08/02/24 13:51
Albuterol Hfa [90 Mcg/Dose] Inhaler INH
R Q4HPRN PRN
SOB
Protocol
Amlodipine Besylate 5 mg 08/02/24 08:00 08/03/24 08:18
Amlodipine 5 Mg Tablet PO 08/30/24 07:59 5 mg
DAILY DHARMESH Administration
Atorvastatin Calcium 10 mg 08/01/24 22:00 08/03/24 20:21
Atorvastatin (Lipitor) 10 Mg Tablet PO 08/29/24 21:59 10 mg
HS DHARMESH Administration
Bisacodyl 10 mg 08/01/24 16:27
Bisacodyl 10 Mg Rectal Suppository RECTAL 08/29/24 16:26
V17CTAT PRN
constipation
Diphenhydramine HCl 25 mg 08/01/24 16:50 08/02/24 20:44
Diphenhydramine 25 Mg Capsule PO 08/29/24 16:49 25 mg
HSPRN PRN Administration
sleep
Fluticasone Propionate 2 puff 08/01/24 20:00 08/03/24 19:35
Fluticasone 110mcg Inhaler INH 08/29/24 19:59 2 puff
R BID DHARMESH Administration
Protocol
Furosemide 40 mg 08/02/24 08:00 08/03/24 08:18
Furosemide 40 Mg Tablet PO 08/30/24 07:59 40 mg
DAILY DHARMESH Administration
Lidocaine 1 patch 08/01/24 10:15 08/03/24 08:18
Lidocaine 4% Topical Patch TOPICAL 08/29/24 10:14 1 patch
DAILY DHARMESH Administration
Protocol
Melatonin 5 mg 08/01/24 22:00 08/03/24 20:21
Melatonin 5 Mg Tablet PO 08/29/24 21:59 5 mg
HS DHARMESH Administration
Multivitamins Therapeutic 1 tablet 08/02/24 08:00 08/03/24 08:18
Multivitamin Tablet PO 08/30/24 07:59 1 tablet
DAILY DHARMESH Administration
Oxycodone HCl 5 mg 08/01/24 15:25 08/03/24 20:21
Oxycodone 5 Mg Regular Release Tablet PO 08/15/24 15:24 5 mg
Q4HPRN PRN Administration
severe pain
Pantoprazole Sodium 40 mg 08/02/24 08:00 08/03/24 08:18
Pantoprazole 40 Mg Delayed Release Tablet PO 08/30/24 07:59 40 mg
DAILY DHARMESH Administration
Patch Removal 0 patch 08/01/24 20:00 08/03/24 21:03
Remove Lidocaine Patch REMOVE 08/29/24 19:59 1 patch
DAILY@2000 DHARMESH Administration
Polyethylene Glycol 17 grams 08/01/24 16:27
Polyethylene Glycol Powder 17 Grams Packet PO 08/29/24 16:26
DAILYPRN PRN
constipation
Rivaroxaban 15 mg 08/02/24 08:00 08/03/24 08:18
Rivaroxaban 15 Mg Tablet PO 08/30/24 07:59 15 mg
DAILY DHARMESH Administration
Senna/Docusate Sodium 1 tablet 08/01/24 16:27
Docusate W/Senna (Griselda-Colace) Tablet PO 08/29/24 16:26
BIDPRN PRN
constipation
Sodium Chloride 0 flush 08/01/24 17:00 08/02/24 09:36
Sodium Chloride 0.9% (Flush) Syringe IV 08/29/24 16:59 1 flush
PER PROTOCOL DHARMESH Administration
Tamsulosin HCl 0.4 mg 08/02/24 14:00 08/03/24 08:18
Tamsulosin 0.4 Mg Capsule PO 08/30/24 13:59 0.4 mg
DAILY DHARMESH Administration
Vitamin C/Vitamin E 1 cap 08/02/24 08:00 08/03/24 08:18
Vit C/Vit E/Lutein/Min/[place]-3 (Ocuvite) Capsule PO 08/30/24 07:59 1 cap
DAILY DHARMESH Administration
Home Medications
�Medication �Instructions �Recorded
amlodipine 5 mg tablet (Norvasc) 5 mg PO DAILY Blood Pressure 01/04/24
atorvastatin 10 mg tablet (Lipitor) 10 mg PO HS High Cholesterol 01/04/24
budesonide 180 mcg/actuation 2 inh inhalation R BID 01/04/24
breath activated powder inhaler Lung/Breathing Issues
(Pulmicort Flexhaler)
esomeprazole magnesium 20 mg 20 mg PO DAILY Gastrointestinal 01/04/24
capsule,delayed release (Nexium) Issue
melatonin 5 mg tablet 5 mg PO HS sleep 01/04/24
vitamins A,C,W-ctjy-peaeam 2,148 1 tab PO DAILY Supplement 01/04/24
mcg-113 mg-45 mg-17.4 mg tablet
(PreserVision AREDS)
rivaroxaban 15 mg tablet (Xarelto) 15 mg PO DAILY #30 tabs 01/07/24
diphenhydramine 25 3 - 4 tab PO HSPRN PRN sleep 08/01/24
mg-acetaminophen 500 mg tablet
(Tylenol PM Extra Strength)
furosemide 40 mg tablet (Lasix) 40 mg PO DAILY 08/01/24
therapeutic multivitamin 1 tab PO DAILY 08/01/24
[2024-08-03] MEDS: LIPITOR 10 MG PO (20:21)
[2024-08-03] MEDS: MELATONIN 5 MG PO (20:21)
[2024-08-03] MEDS: ZYPREXA 5 MG PO (21:03)
--- NOTE | 2024-08-03 22:23 | W.PN.UPDATE ---
Update Note
Progress Note Update
Code purple 22:23
Patient is agitated, trying to kick staff, scratching of the staff, staff not able to redirect, one time order of IM Zyprexa was given and soft restraint.
3:30 am Patient started to be agitated again, trying to get out of bed, removing the restraint, staff can not redirect, one time of 1mg Haldol IM and psych consult placed.
[2024-08-03] MEDS: ZYPREXA 5 MG IM (22:27)
[2024-08-03] MEDS: STERILE WATER FOR INJECTION 2.1 ML IM (22:29)
--- NOTE | 2024-08-03 22:29 | W.PN.UPDATE ---
Update Note
Progress Note Update
2049 RN notified REEL BLADE BENDER FURNACE TENDER patient with hx of Dementia is now agitated, trying to get out of the chair, and REEL BLADE BENDER FURNACE TENDER noticed patient verbally abusive to staff, just received Oxycodone and Melatonin from the RN, will order Zyprexa 5mg PO now.
[2024-08-04] VITALS (7 sets, daily range): BP systolic 104–133; BP diastolic 63–82
[2024-08-04] MEDS: BENADRYL 25 MG PO (01:20)
[2024-08-04] MEDS: HALDOL 1 MG IM (03:42)
--- NOTE | 2024-08-04 04:30 | PTCARENOTE ---
Addendum entered by Asha Caldwell RN 08/04/24 06:03:
Pt stilll continues with 4 point/4rail restraint as pt restless & pulling on lines at this time.Plan of care continued.
Addendum entered by Asha Caldwell RN 08/04/24 04:39:
BARN AND PROPERTY MANAGER educational specialist was called to floor to assess pt as pt trying to work himself up, very anxious,screaming.Trying to keep fighting.Pt was placed on oxygen at 2lit & FARMER as he is very anxious & pt refuses CPAP.pulse oxy 92-95.Lucas continued & draining
well. Pt denies of any pain. Plan of care continued.
Original Note:
Pt AAOXself only,unable to redirect.Multiple attempts made to redirect pt. All comfort measures were tried. Vel olmstead was called on pt for very agitated, combative at staff, trying to take the gerichair table off. Pt was provided with IM zyprexa
as po was not helping,BARN AND PROPERTY MANAGER aware of pt condition & seen pt. Pt VSS stable & pt was put in 4point restriants as pt kicking at staff, pulling on lines.
--- NOTE | 2024-08-04 08:00 | PTCARENOTE ---
Pt in four point restraints in bed, sleeping this morning and then much more calm and cooperative upon awakening. One to one at bedside. Decision made to remove restraints at this time.
[2024-08-04 08:28] LABS: % Basophils 0.3 % (0-2); % Eosinophils 0.8 % (0-6); % Immature Granulocytes 0.5 % (0-0.5); % Lymphocytes 11.8 % (20.5-51.1); % Monocytes 9.8 % (1.7-9.3); % Neutrophils 76.8 % (42.2-75.2); Absolute Eosinophils 0.1 10^3/uL (0-0.7); Absolute Immature Granulocytes 0.1 10^3/uL (0-0.05); Absolute Lymphocytes 1.3 10^3/uL (1.2-3.4); Absolute Monocytes 1.1 10^3/uL (0.1-0.6); Absolute Neutrophils 8.6 10^3/uL (1.4-6.5); Hematocrit 37.1 % (39.0-52.0); Mean Corp Hgb Conc. 32.3 g/dL (33.0-37.0); Mean Corpuscular Hgb 23.3 pg (27.0-31.0); Mean Corpuscular Volume 72.2 fL (80.0-94.0); Mean Platelet Volume 10.8 fL (7.4-10.4); Nucleated Red Blood Cells % 0 % (-); Platelet Count 176 10^3/uL (130-400); Red Blood Cell Count 5.14 10^6/uL (4.70-6.10); Red Cell Dist. Width 14.9 % (11.5-14.5); White Blood Cell Count 11.1 10^3/uL (4.8-10.8)
[2024-08-04 09:03] LABS: Blood Urea Nitrogen 52 mg/dl (9-20); Calcium 9.3 mg/dl (8.4-10.2); Carbon Dioxide 28 mmol/L (22-30); Chloride 98 mmol/L (98-107); Estimated Creatinine Clearance 29 ml/min; Glucose 100 mg/dl (70-99); Sodium 139 mmol/L (135-145); eGFR 35.76
[2024-08-04] MEDS: LIDOCAINE 4% PATCH TOPICAL (09:20)
[2024-08-04] MEDS: FLOMAX 0.4 MG PO (09:21)
[2024-08-04] MEDS: NORVASC 5 MG PO (09:21)
[2024-08-04] MEDS: LASIX 40 MG PO (09:21)
[2024-08-04] MEDS: THERAGRAN 1 TABLET PO (09:22)
[2024-08-04] MEDS: OCUVITE SOFTGEL 1 CAP PO (09:22)
[2024-08-04] MEDS: PROTONIX 40 MG PO (09:22)
[2024-08-04] MEDS: XARELTO 15 MG PO (09:22)
--- NOTE | 2024-08-04 11:28 | CM ---
Patient with fall per nursing yesterday, Patient on 1:1 and with med sitter. Patient will need to be off of both for 24 hours prior to going to SNF and will need auth started. CM will continue to follow for discharge planning needs.
Plan; SNF when medically appropriate and pending SNF acceptance and Auth
--- NOTE | 2024-08-04 12:18 | W.PN.URO.CBU ---
Today's Communication / Plan
-
Maintain rock
Bladder scan to ensure proper drainage
Outpatient trial of void vs additional workup
Assessment / Plan
-
89M admitted with inability to stand and severe back pain, found to have acute vs chronic urinary retention, PVR 420cc, with bilateral hydroureteronephrosis
History of prostate cancer s/p prostatectomy with known biochemical recurrence
- Urinary retention may be related to acute spinal pathology or change in functional status vs chronic neurogenic bladder. Combination of this bladder dysfunction with acute lower back pain and gait abnormality may be due to progression of severe
spine DJD/stenosis
- Recommend discharge with rock catheter in place for about 1 week or until ambulating and functional status closer to baseline. Trial of void in our office or at rehab.
- If retention persists, he may require further evaluation with cystoscopy or urodynamics
- Follow up with Dr. Seymour
PRESTON
- New PRESTON 08/04 with creatinine to 1.8
- Bladder scan to ensure catheter draining properly
Prostate cancer
- Biochemical recurrence s/p prostatectomy, previously tx with hormone therapy/Lupron but currently under PSA surveillance
- PSA increased to 7.6 from prior 6.3 09/2023 - steady increase but relatively slow doubling time
- Doubt significant involvement in current pathology but cannot completely rule this out
Diagnosis
-
Date of Service: August 04, 2024
-
Patient Diagnosis:
Prostate cancer
Urinary retention
Bilateral hydronephrosis
Post Op Day:
Subjective
-
Agitated overight requiring 1:1
No complaints
Tolerating rock
Objective
-
Vital Signs
Temp Pulse Resp BP Pulse Ox
98 F 95 16 133/77 94
08/04/24 07:25 08/04/24 09:15 08/04/24 07:29 08/04/24 09:15 08/04/24 09:15
Intake and Output
08/03/24 08/04/24 08/05/24
06:59 06:59 06:59
Intake Total 720 / 720 1140 / 1140
Output Total 1350 / 1350 700 / 700
Balance -630 / -630 440 / 440
Intake:
Oral fluids 720 / 720 1140 / 1140
Output:
Urine, Rock 550 / 550 350 / 350
Urine, Voided 800 / 800 350 / 350
Laboratory Results
08/04/24 06:32
08/04/24 06:32
Physical Exam
-
General - well developed, well nourished, no acute distress
Chest - clear bilaterally
Abdomen - soft, non-tender, positive bowel sounds, no CVAT, no incisional pain or distention
Genitalia - normal
Rectal - normal
Skin - warm & dry with no rash
Neuro - AOx3, no motor deficits
Extremities - no clubbing, no cyanosis, no edema
Incision - clean, dry
Dressing - clean, dry, intact
--- NOTE | 2024-08-04 12:28 | CS.PSYCHR ---
Consult Summary - Psychiatry
-
Psychiatry consult for agitation management. 89 yo male with history of dementia admitted 08/01/2024 for back pain. Per chart, patient was severely agitated last night including kicking staff and received Zyprexa 5mg IM and soft restraints. Then
early in AM, he again required Haldol 1mg IM. Qtc this morning was 478. Zyprexa 5mg HS PO was started this morning by primary team. Today patient is sitting in chair eating breakfast calm and comfortably. 1:1 reports that patient had pain ambulating
to the bathroom but no episodes of agitation. Patient states he does not recall any of the incidents described above and appears very surprised. He is oriented to self, place, year, and month and can tell me a female is running against Trump for
presidency.
MSE- good eye contact. calm. cooperative. slowed cognition. poverty of thought. denies hallucinations. denies depressed mood. oriented as noted above. poor insight/judgement
Past psych- denies; prescribed melatonin
Social- lives with . this is his second marriage; per nursing she stated she is unable to care for him at home.
D&A- denies
PMH- obesity, EFRAIN on cpap, paroxysmal afib, protate cancer, GERD, CKD, DJD, HFpEF
A/P- 89 to male with dementia and likely sundowning. Will leave the HS zyprexa 5mg PO for night but recommend it be held if patient is calm/sleeping. Would like to avoid IM medication/restraints if possible. We will see how he does overnight and
then make further decisions on whether medication should be standing or PRN. Case discussed with nursing and case management. Psychiatry will follow.
--- NOTE | 2024-08-04 12:52 | W.PN.HOSP.TC ---
Today's Communication/Plan
-
pending rehab (as per CM on Mon, can be complictaed since recent agitation)
Assessment / Plan
Assessment / Plan
89yo M with PMHx of prostatectomy, , prostate CA s/p resection, HFpEF, restrictive lung disease, COPD, EFRAIN, afib on Xarelto, HTN, dementia, GERD, CKD stage 3 brought by his 2/2 lower back pain radiating to RLE for 3 days, CT showed DJD with
disk bulge, MRI showed multilevel foraminal narrowing. NeuroSx - no surgical intervention, might eventually need steroids injection. Found urinary retention and had Lucas placed, urology will follow as outpatient. Patient previously was treated with
hormonal therapy for prostate CA after reesection, then stopped during pandemic. PSA was trending upwards, plan was to restart treatment if any signs of metastatic disease or if PSA reaching 10. CM working on rehab placement - apparently
can be d/c on 08/05/24 as pr CM
A/P:
#DJD
#Radiculopathy with disk bulge
pain mgmt
PT/OT: rehab. As per CM -
topical NSAIDs upon d/c
MRI lumbar with multilevel DJD and disk bulge, multilevel foraminal narrowing and spinal stenosis without cauda equina. NeuroSx - no surgical intervention, might eventually need steroids injection
Patient has no saddle anesthesia or new urinary/bowel incontinence or constipation, no concern for cauda equina syndrome
Can bear weight on bedside assessment
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
#microcytosis
iron WNL
#Indirect bilirubinemia
normal retics
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
no concern for hemolysis with minimal LDH elevation
monitor LFT
#Hx of bladder CA s/p prostate resection
#Urinary retention, possible neurogenic bladder
Large PVR
Urology: following PSA, cont Lucas, outpatient follow up
#Restrictive lung disease
#Chronic COPD
#EFRAIN
#Chronic HFpEF
#Moderate
#Afib, unspecified
#Essential HTN
#Dementia, unspecified with behavioral disturbances
#CKD stage 3a
cont home meds
cont CPAP
Psych consult: cont olanzapine HS, avoid if calm and sleeping
DVT ppx on Xarelto
Full code
I have spent at least 58min reviewing chart, test results, communication with family and direct patient care
Anticipated Discharge: Within 24 hours
Subjective/Interval History
-
Date of Service: August 04, 2024
Objective Data
-
Labs:
Laboratory Results
08/04/24
06:32
WBC 11.1 H
Hgb 12.0 L
Hct 37.1 L
Plt Count 176
Sodium 139
Potassium 4.0
Chloride 98
Carbon Dioxide 28
BUN 52 H
Creatinine 1.8 H
Glucose 100 H
Calcium 9.3
Vital Signs:
Vital Signs
Temp Pulse Resp BP Pulse Ox
98 F 95 16 133/77 94
08/04/24 07:25 08/04/24 09:15 08/04/24 07:29 08/04/24 09:15 08/04/24 09:15
I&O
08/03/24 08/04/24 08/05/24
06:59 06:59 06:59
Intake Total 720 / 720 1140 / 1140
Output Total 1350 / 1350 700 / 700
Balance -630 / -630 440 / 440
Review of Systems
-
Unable to obtain full review of systems at this time due to: Dementia
History Source: Patient
All other systems: Reviewed and negative
Physical Exam
-
General: No Apparent Distress
HEENT: Normocephalic
Respiratory: Clear to Auscultation
GI: Soft, Nontender and Nondistended
Neuro: Awake, Alert and Oriented (to himself and place)
Psych: Calm and Apparent Dementia
[2024-08-04] MEDS: ROXICODONE 5 MG PO (16:18)
--- NOTE | 2024-08-04 16:37 | PTCARENOTE ---
Family at bedside. Pt in chair and continues to be calm and cooperative. Mental status waxes and wanes and at times patient unable to state where he is. Remains impulsive with very unsteady gait. Pt able to ambulate into bathroom but assistance but
R knee does start to buckle at times. Reporting 9/10 R knee pain and PRN oxycodone given per orders. Continued need for one to one observation.
[2024-08-04] MEDS: HALDOL 1 MG IV (17:18)
[2024-08-04] MEDS: ZYPREXA 5 MG PO (21:22)
[2024-08-04] MEDS: MELATONIN 5 MG PO (21:22)
[2024-08-04] MEDS: LIPITOR 10 MG PO (21:22)
[2024-08-05 05:19] VITALS: BMI 31.5
[2024-08-05 07:15] VITALS: BP 114/74
[2024-08-05] MEDS: OCUVITE SOFTGEL 1 CAP PO (07:39)
[2024-08-05] MEDS: PROTONIX 40 MG PO (07:39)
[2024-08-05] MEDS: LASIX 40 MG PO (07:39)
[2024-08-05] MEDS: THERAGRAN 1 TABLET PO (07:39)
[2024-08-05] MEDS: NORVASC 5 MG PO (07:39)
[2024-08-05] MEDS: XARELTO 15 MG PO (07:39)
[2024-08-05] MEDS: FLOMAX 0.4 MG PO (07:39)
[2024-08-05] MEDS: LIDOCAINE 4% PATCH 1 PATCH TOPICAL (07:40)
--- NOTE | 2024-08-05 09:04 | W.PN.HOSP.TC ---
Today's Communication/Plan
-
Pain control. Discharge planning in progress.
Assessment / Plan
Assessment / Plan
Physical exam:
General: Acutely and chronically ill and No Apparent Distress
HEENT: Normocephalic, Atraumatic and Moist Mucous Membranes
Respiratory: Clear to Auscultation; Negative Wheezes, Rales or Rhonchi
Cardiac: Regular Rhythm and S1/S2
GI: Soft, Nontender and Nondistended
Musculoskeletal: No Clubbing, No Cyanosis and No Edema
Neuro: Awake, Alert and Disoriented
Psych: Calm
Mental status changes related to dementia and sundowning/acute on chronic lower back pain with lower extremity pain and weakness related to DJD and disc pathology:
Neurology evaluated the patient and appreciated input
Neurosurgery evaluated the patient and appreciated input
Psychiatry evaluated the patient and appreciated input as well
Continue Zyprexa
Reviewed lumbar MRI
Cont pain control
Discussed with and daughter at bedside today on 08/05
Case management working on discharge disposition
Acute on chronic urinary retention:
Lucas catheter
Urology evaluated patient and appreciated input.
PRESTON on CKD stage 3:
Creatinine 1.1--> 1.8 yesterday
Repeat labs ordered and awaiting for results
Prostate cancer:
Status post prostatectomy in the past with hormone therapy treatment
Needs follow-up PSA surveillance as outpatient closely
Paroxysmal atrial fibrillation:
Not rate control agents
On anticoagulation, Xarelto
Chronic diastolic CHF:
Appears euvolemic
Cont Lasix 40 mg daily
DVT prophylaxis:
Xarelto
Code status:
Full code
Anticipated Discharge: 24 - 48 hours
Subjective/Interval History
-
Date of Service: August 05, 2024
Patient denies any chest pain or shortness of breath. Alert but pleasantly disoriented.
Objective Data
-
Vital Signs:
Vital Signs
Temp Pulse Resp BP Pulse Ox
99.1 F 114 24 114/74 91
08/05/24 07:15 08/05/24 07:39 08/05/24 07:15 08/05/24 07:39 08/05/24 07:15
I&O
08/04/24 08/05/24 08/06/24
06:59 06:59 06:59
Intake Total 1140 / 1140 780 / 780
Output Total 700 / 700 750 / 750
Balance 440 / 440 30 / 30
--- NOTE | 2024-08-05 09:27 | PTCARENOTE ---
pt awake oriented to self and month. 1:1 at bedside. lido patch on right lower back.
--- NOTE | 2024-08-05 11:07 | CM ---
Confusion maintained. On for safety.
PT OT evals say SNF.
Wendy R[facility] accpeted him .
Will need to be off one to one before acceted to SNG .
Will need SNF auth.
PLAN To SNF when appropriate and auth obtained..
[2024-08-05 12:19] VITALS: BP 120/78; PULSE 97
--- NOTE | 2024-08-05 13:26 | W.PN.UPDATE ---
Update Note
Progress Note Update
Bladder scan yesterday 0cc - catheter draining without issue
No likely obstructive cause for PRESTON
Trend BMP
No new input at this time
[2024-08-05 15:20] VITALS: BP 132/84
[2024-08-05] MEDS: TYLENOL 650 MG PO (16:13)
[2024-08-05] MEDS: ROXICODONE 5 MG PO (17:28)
[2024-08-05 17:34] LABS: Hematocrit 32.9 % (39.0-52.0); Hemoglobin 11.1 g/dL (13.0-18.0); Mean Corp Hgb Conc. 33.7 g/dL (33.0-37.0); Mean Corpuscular Hgb 23.9 pg (27.0-31.0); Mean Corpuscular Volume 70.8 fL (80.0-94.0); Mean Platelet Volume 10.3 fL (7.4-10.4); Platelet Count 160 10^3/uL (130-400); Red Blood Cell Count 4.65 10^6/uL (4.70-6.10); White Blood Cell Count 7.7 10^3/uL (4.8-10.8)
[2024-08-05 17:57] LABS: Blood Urea Nitrogen 55 mg/dl (9-20); Calcium 8.9 mg/dl (8.4-10.2); Carbon Dioxide 24 mmol/L (22-30); Chloride 99 mmol/L (98-107); Estimated Creatinine Clearance 34 ml/min; Glucose 113 mg/dl (70-99); Sodium 135 mmol/L (135-145)
[2024-08-05] MEDS: MELATONIN 5 MG PO (21:30)
[2024-08-05] MEDS: TYLENOL 500 MG PO (21:30)
[2024-08-05] MEDS: ZYPREXA 5 MG PO (21:30)
[2024-08-05] MEDS: LIPITOR 10 MG PO (21:30)
[2024-08-05 23:17] VITALS: BP 111/72
--- NOTE | 2024-08-06 00:40 | PTCARENOTE ---
Pt yelling out 'I am having a hard time breathing.' This RN in to see Pt. pox 92% on Ra. Pt repositioned in bed, hob elevated. Placed on 2l NC, pox 96%. Encouraged deep breathing. Pt states 'I feel better with this on.' medsitter in place. no
issues. call mahan within reach.
[2024-08-06 03:23] VITALS: BP 119/70
[2024-08-06] MEDS: HALDOL 1 MG IV (04:59)
[2024-08-06 06:00] VITALS: BMI 31.4
[2024-08-06 07:35] VITALS: BP 124/76
--- NOTE | 2024-08-06 08:49 | W.PN.HOSP.TC ---
Today's Communication/Plan
-
Pain control. Zyprexa. Oral diuretics.
Assessment / Plan
Assessment / Plan
Physical exam:
General: Acutely and chronically ill and No Apparent Distress
HEENT: Normocephalic, Atraumatic and Moist Mucous Membranes
Respiratory: Clear to Auscultation; Negative Wheezes, Rales or Rhonchi
Cardiac: Regular Rhythm and S1/S2
GI: Soft, Nontender and Nondistended
Musculoskeletal: No Clubbing, No Cyanosis and No Edema
Neuro: Awake, Alert and Oriented
Psych: Calm
Mental status changes related to dementia and sundowning/acute on chronic lower back pain with lower extremity pain and weakness related to DJD and disc pathology:
Neurology evaluated the patient and appreciated input
Neurosurgery evaluated the patient and appreciated input
Psychiatry evaluated the patient and appreciated input as well
Continue Zyprexa
Reviewed lumbar MRI
Cont pain control
Discussed with and daughter and at bedside on 08/05
Case management working on discharge disposition
Acute on chronic urinary retention:
Lucas catheter
Urology evaluated patient and appreciated input.
PRESTON on CKD stage 3:
Creatinine 1.1-->1.8--> 1.5 yesterday-->today 1.3
Prostate cancer:
Status post prostatectomy in the past with hormone therapy treatment
Needs follow-up PSA surveillance as outpatient closely
Paroxysmal atrial fibrillation:
Not rate control agents
On anticoagulation, Xarelto
Chronic diastolic CHF:
Appears euvolemic
Cont Lasix 40 mg daily
DVT prophylaxis:
Xarelto
Code status:
Full code
Anticipated Discharge: Within 24 hours
Subjective/Interval History
-
Date of Service: August 06, 2024
Patient seen and examined. Looks more oriented today but fluctuates.
Objective Data
-
Labs:
Laboratory Results
08/06/24
08:18
WBC Pending
Hgb Pending
Hct Pending
Plt Count Pending
Sodium Pending
Potassium Pending
Chloride Pending
Carbon Dioxide Pending
BUN Pending
Creatinine Pending
Glucose Pending
Calcium Pending
Vital Signs:
Vital Signs
Temp Pulse Resp BP Pulse Ox
98.2 F 90 14 124/76 95
08/06/24 07:35 08/06/24 08:05 08/06/24 08:05 08/06/24 07:35 08/06/24 08:05
I&O
08/05/24 08/06/24 08/07/24
06:59 06:59 06:59
Intake Total 780 / 780 600 / 600
Output Total 750 / 750 1200 / 1200
Balance 30 / 30 -600 / -600
[2024-08-06 08:52] LABS: % Basophils 0.7 % (0-2); % Eosinophils 3.3 % (0-6); % Immature Granulocytes 0.3 % (0-0.5); % Lymphocytes 17.1 % (20.5-51.1); % Neutrophils 60.6 % (42.2-75.2); Absolute Eosinophils 0.2 10^3/uL (0-0.7); Absolute Neutrophils 3.5 10^3/uL (1.4-6.5); Hematocrit 36.3 % (39.0-52.0); Hemoglobin 11.8 g/dL (13.0-18.0); Mean Corp Hgb Conc. 32.5 g/dL (33.0-37.0); Mean Corpuscular Hgb 24.2 pg (27.0-31.0); Mean Corpuscular Volume 74.4 fL (80.0-94.0); Mean Platelet Volume 10.4 fL (7.4-10.4); Nucleated Red Blood Cells % 0 % (-); Platelet Count 151 10^3/uL (130-400); Red Blood Cell Count 4.88 10^6/uL (4.70-6.10); Red Cell Dist. Width 14.9 % (11.5-14.5); White Blood Cell Count 5.8 10^3/uL (4.8-10.8)
[2024-08-06 09:16] LABS: Blood Urea Nitrogen 50 mg/dl (9-20); Calcium 8.7 mg/dl (8.4-10.2); Carbon Dioxide 27 mmol/L (22-30); Chloride 98 mmol/L (98-107); Estimated Creatinine Clearance 39 ml/min; Glucose 98 mg/dl (70-99); Sodium 139 mmol/L (135-145); eGFR 52.84
[2024-08-06] MEDS: PROTONIX 40 MG PO (09:30)
[2024-08-06] MEDS: LASIX 40 MG PO (09:30)
[2024-08-06] MEDS: FLOMAX 0.4 MG PO (09:30)
[2024-08-06] MEDS: OCUVITE SOFTGEL 1 CAP PO (09:30)
[2024-08-06] MEDS: LIDOCAINE 4% PATCH 1 PATCH TOPICAL (09:30)
[2024-08-06] MEDS: NORVASC 5 MG PO (09:31)
[2024-08-06] MEDS: TYLENOL 650 MG PO (09:31)
[2024-08-06] MEDS: THERAGRAN 1 TABLET PO (09:31)
[2024-08-06] MEDS: XARELTO 15 MG PO (09:31)
--- NOTE | 2024-08-06 12:24 | W.PN.UPDATE ---
Update Note
Progress Note Update
Pt seen sitting up in chair, working on [employer], calm, with sensorium intact. Pt perseverative, asking for something lower than the foot rest to place his feet on, c/o his feet don't reach the floor while he is sitting in the chair. Reviewed
chart- pt on Zyprexa 5 mg HS for the past 2 nights. Pt was also given prn Haldol 1 mg IV 08/04 in pm and overnight/5 am this morning. QTc has lengthened since 08/04- was 478, now 508 today. No signs of side effects from the above psych med on exam.
Imp: Dementia with intermittent/nighttime agitation
Rec: continue Zyprexa 5 mg HS; consider prn Zyprexa 2.5 mg IM if QTc continues to increase with prn Haldol
will continue to follow
[2024-08-06] MEDS: TESSALON PERLES 100 MG PO (14:50)
[2024-08-06 15:20] VITALS: BP 141/75
[2024-08-06] MEDS: ROXICODONE 5 MG PO ×2 (16:27→21:08)
--- NOTE | 2024-08-06 17:19 | CM ---
Confusion improved.1:1 removed today.
PT OT evals say SNF.
[facility] accepted him .Family agrees with [facility].
PT OT evals needed.
Will need SNF auth.
Requested ambulance Medical nec form needed.
PLAN To [facility] after auth obtained.
[2024-08-06] MEDS: LIPITOR 10 MG PO (21:08)
[2024-08-06] MEDS: MELATONIN 5 MG PO (21:08)
[2024-08-06] MEDS: ZYPREXA 5 MG PO (21:08)
[2024-08-06] MEDS: BENADRYL 25 MG PO (23:52)
[2024-08-06 23:53] VITALS: BP 124/70
[2024-08-07] MEDS: HALDOL 1 MG IV (02:08)
[2024-08-07] MEDS: ROXICODONE 5 MG PO (03:05)
[2024-08-07 06:00] VITALS: BMI 31.6
[2024-08-07 08:11] VITALS: BP 121/65
[2024-08-07] MEDS: TYLENOL 650 MG PO (08:28)
[2024-08-07] MEDS: OCUVITE SOFTGEL 1 CAP PO (08:28)
[2024-08-07] MEDS: XARELTO 15 MG PO (08:28)
[2024-08-07] MEDS: NORVASC 5 MG PO (08:28)
[2024-08-07] MEDS: FLOMAX 0.4 MG PO (08:29)
[2024-08-07] MEDS: THERAGRAN 1 TABLET PO (08:29)
[2024-08-07] MEDS: LASIX 40 MG PO (08:29)
[2024-08-07] MEDS: PROTONIX 40 MG PO (08:29)
[2024-08-07] MEDS: LIDOCAINE 4% PATCH 1 PATCH TOPICAL (08:33)
--- NOTE | 2024-08-07 09:30 | W.PN.HOSP.TC ---
Today's Communication/Plan
-
Neurology evaluation.
Assessment / Plan
Assessment / Plan
Physical exam:
General: Acutely and chronically ill and No Apparent Distress
HEENT: Normocephalic, Atraumatic and Moist Mucous Membranes
Respiratory: Clear to Auscultation; Negative Wheezes, Rales or Rhonchi
Cardiac: Regular Rhythm and S1/S2
GI: Soft, Nontender and Nondistended
Musculoskeletal: No Clubbing, No Cyanosis and No Edema
Neuro: Awake, Alert and Disoriented, no gross neurological deficits but generalized weakness and mild tremors. No rigidity or bradykinesia
Psych: Calm
Mental status changes related to dementia and sundowning/acute on chronic lower back pain with lower extremity pain and weakness related to DJD and disc pathology:
Neurology evaluated the patient previously and appreciated input--> is very concerned about neurological issues such as stroke and/or Parkinson's and requested neurology reevaluation.
I asked neurology to reevaluate today but since they do not know the patient, therefore I asked for new consult from neurology today-discussed via [facility] text on 08/07 and neurology will see the patient today.
Discussed with at length at bedside.
Discussed with psychiatry as well.
Discontinue Zyprexa per psychiatry
On melatonin and Benadryl per psychiatry for sleeping aid.
Prior to today:
Neurosurgery evaluated the patient and appreciated input
Psychiatry evaluated the patient and appreciated input as well
Reviewed lumbar MRI
Cont pain control
Discussed with prior
Case management working on discharge disposition
Acute on chronic urinary retention:
Lucas catheter
Urology evaluated patient and appreciated input.
PRESTON on CKD stage 3:
Creatinine 1.1-->1.8--> 1.5-->on 08/06 1.3
Prostate cancer:
Status post prostatectomy in the past with hormone therapy treatment
Needs follow-up PSA surveillance as outpatient closely
Paroxysmal atrial fibrillation:
Not rate control agents
On anticoagulation, Xarelto
Chronic diastolic CHF:
Appears euvolemic
Cont Lasix 40 mg daily
DVT prophylaxis:
Xarelto
Code status:
Full code
Anticipated Discharge: Within 24 hours
Subjective/Interval History
-
Date of Service: August 07, 2024
Patient mental status fluctuated. Appears alert and calm today. Afebrile
Objective Data
-
Vital Signs:
Vital Signs
Temp Pulse Resp BP Pulse Ox
98.3 F 83 18 121/65 95
08/07/24 08:11 08/07/24 08:11 08/07/24 08:11 08/07/24 08:11 08/07/24 08:11
I&O
08/06/24 08/07/24 08/08/24
06:59 06:59 06:59
Intake Total 600 / 600 720 / 720
Output Total 1200 / 1200 850 / 850
Balance -600 / -600 -130 / -130
--- NOTE | 2024-08-07 11:29 | CM ---
Addendum entered by Quiana Mckeon RN 08/07/24 16:46:
Eileen called from [facility] Pt approved snf from 08/07/24 to 08/09/24 NRD call Jane Montesinos #[phone] fax [phone] Auth number [id number] . Medical nec form completed.
Elaina aware of above . Pt accepted tomorrow.
PT requested ambulance .
[facility]
report [phone]
fax [phone]
Original Note:
Confusion improved.1:1 removed today.
PT OT evals say SNF.
[facility], accepted him .Family agrees with [facility].
Called [phone] spoke with Jacquie elizondo . Rerf # [id number] clinical faxed to [phone].
Awaiting auth
Requested ambulance Medical nec form needed.
PLAN To [place] [facility] after auth obtained.
[2024-08-07 11:50] VITALS: BP 123/80; PULSE 81; O2SAT 95
[2024-08-07 11:55] VITALS: BP 123/80; PULSE 81; O2SAT 95
--- NOTE | 2024-08-07 12:44 | W.PN.UPDATE ---
Update Note
Progress Note Update
patient seen chart reviewed. spoke with nursing and with . asked a lot of questions about patient's medical treatment some of which i answered others i defer to dr bruno who will come to bedside this afternoon to talk to . she asked if
he had had a stroke. explained to her that cat brain does not show a cva. she asked about constipation. reviewed his meds w her. he is taking olanzapine which can worsen constipation and have dc'ed this. she told me he can get agitated at home
primarily can get snappy...she recognizes dementia... she said she deals with him getting snappy but getting snappy back. we also talked about the prostate issue and that they will need to follow up w urology. the patient was very pleasant when i
saw him. nursing tells me he did not sleep at all last night. tells me he never sleeps in a bed he sleeps sitting up. the bed function which would allow him to sleep sitting up does not seem to work ( i tried it). he may need a different bed
to allow him to sleep in the position he finds comfortable. i stopped raphael order of zyprexa also bc he does not seem to need a raphael order and zyprexa in addition to constipation causes weight gain which this man does not need exp given his back
issues. tells me benadryl 25 mg and melatonin enable him to sleep at home. have ordered these. benadryl may not be the best choice w dementia but it will have less ill effects than prison zyprexa. psych will follow
[2024-08-07 16:26] VITALS: BP 122/68
--- NOTE | 2024-08-07 17:10 | W.PN.NEURO.1 ---
Today's Communication / Plan
-
.
Subjective/Objective
Subjective Data
Date of Service: August 07, 2024
Neurology follow-up note
CC: none
HPI: This is a 89-year-old man who presented to [facility] on August 01, 2022 for with back pain. Mr. 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
Mr. Foster reports no complaints. According to the patient the patient has had progressive cognitive decline over at least 1 to 2 years. He has not been driving for several years due to 'small reaction '. His took over financial affairs
due to mistakes that he has been having. His medications are being administered by his spouse over the last 9 months. Mr. 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
Hospital course was complicated by delirium requiring haloperidol and Zyprexa administration.
Current pain regiment includes Tylenol 650 mg; lidocaine patch, oxycodone 5 mg PRN (given QD)
CT head wo contrast(07/29/2024) showed global parenchymal volume loss
PMH: AFib/Flutter, prostate CA, HTN, DLP, CKD, HFpEF, COPD. GERD, EFRAIN, obesity, obstructive uropathy
PSH:radical prostatectomy
SH: ; former smoker; was independent in ambulation before the admission; history excessive alcohol use in the recent past
All:NKDA
ROS:Constitutional: Negative. Negative for chills, fever and unexpected weight change.
HENT: Positive for hearing impairment.
Eyes: Negative. Negative for photophobia, pain and visual disturbance.
Respiratory: Negative for cough, choking and shortness of breath.
Cardiovascular: Negative for chest pain, palpitations and leg swelling.
Gastrointestinal: Negative for abdominal pain and vomiting.
Endocrine: Negative. Negative for cold intolerance.
Musculoskeletal: Negative for back pain
Skin: Negative for rash.
Allergic/Immunologic: Negative. Negative for immunocompromised state.
Neurological: Positive for ambulatory dysfunction, cognitive deficits
Psychiatric/Behavioral: positive for confusion and intermittent agitation.,
General: Well developed. In no acute distress.
Cardio: Regular rate and rhythm. Extremities are without cyanosis or edema.
Neuro:
Mental Status: Alert, oriented to person, place, and date. Poor attention and comprehension. FOllows simple requests. No hemineglect. Nonfluent. Labile mood.
Cranial Nerves: . Pupils 2 mm, nonreactive. EOMs full. BTT BL No ptosis. No nystagmus. Face symmetric. Poor hearing AU. The palate elevated well. SCMs and traps 5/5. Tongue midline. No dysarthria.
Motor: No pronator or arm drift. Strength 5/5 throughout, except for R hip flexion/knee extension 4/5.
Reflexes: bilateral grasp, 2+ in US, L patellar 3+, R patellar 0.2.
Sensory: Normal vibration at the ankles BL
Coordination: No dysmetria
Gait: deferred
Assessment and Plan:
I. Multifactorial encephalopathy ( toxic, neurodegenerative)
II. R L2-L4 radiculopathy
III. 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
-Delirium and fall precautions
-Restart Zyprexa
-Start Gabapentin 100 mg QHS with titration by 100 mg every day tolerated
-Wean off Oxycodone
-Increase Tylenol
-Start thiamine 100 mg once a day.
-Continue PT
-OP neurology follow up in 2-3 weeks
-The case was discussed with patient and spouse. All questions were answered.
I personally reviewed all radiology and labs along with past medical records pertinent to current medical problems. Total time spent in patient care is 38 minutes.
Thank you for allowing us to participate in the care of this patient. Please do not hesitate to contact us with any questions or concerns.
Objective Data
Vital Signs
Temp Pulse Resp BP Pulse Ox
36.8 C 86 18 122/68 96
08/07/24 16:26 08/07/24 16:26 08/07/24 16:26 08/07/24 16:26 08/07/24 16:26
Lab Results
08/06/24 08:18
08/06/24 08:18
Sodium 139 mmol/L (135-145) 08/06/24 08:18
Potassium 4.0 mmol/L (3.5-5.1) 08/06/24 08:18
BUN 50 mg/dl (9-20) H 08/06/24 08:18
Glucose 98 mg/dl (70-99) 08/06/24 08:18
Calcium 8.7 mg/dl (8.4-10.2) 08/06/24 08:18
Patient Allergies
venom-honey bee Allergy (Verified 08/01/24 16:43)
BEE STING-ANAPHYLAXIS
Vital Signs and Labs
-
Vital Signs and Labs:
Vital Signs
Temp Pulse Resp BP Pulse Ox
36.8 C 86 18 122/68 96
08/07/24 16:26 08/07/24 16:26 08/07/24 16:26 08/07/24 16:26 08/07/24 16:26
Lab Results
08/06/24 08:18
08/06/24 08:18
Sodium 139 mmol/L (135-145) 08/06/24 08:18
Potassium 4.0 mmol/L (3.5-5.1) 08/06/24 08:18
BUN 50 mg/dl (9-20) H 08/06/24 08:18
Glucose 98 mg/dl (70-99) 08/06/24 08:18
Calcium 8.7 mg/dl (8.4-10.2) 08/06/24 08:18
Medications
-
Medications:
Generic Name Dose Route Start Last Admin
Trade Name Freq PRN Reason Stop Dose Admin
Acetaminophen 650 mg 08/01/24 15:25 08/07/24 08:28
Acetaminophen 325 Mg Tablet PO 08/29/24 15:24 650 mg
Q4HPRN PRN Administration
mild pain/SMITH/temp> 100.4F
Acetaminophen 500 mg 08/01/24 16:50 08/05/24 21:30
Acetaminophen 500 Mg Tablet PO 08/29/24 16:49 500 mg
HSPRN PRN Administration
SLEEP
Albuterol 2 puff 08/02/24 13:51
Albuterol Hfa [90 Mcg/Dose] Inhaler INH
R Q4HPRN PRN
SOB
Protocol
Amlodipine Besylate 5 mg 08/02/24 08:00 08/07/24 08:28
Amlodipine 5 Mg Tablet PO 08/30/24 07:59 5 mg
DAILY DHARMESH Administration
Atorvastatin Calcium 10 mg 08/01/24 22:00 08/06/24 21:08
Atorvastatin (Lipitor) 10 Mg Tablet PO 08/29/24 21:59 10 mg
HS DHARMESH Administration
Benzonatate 100 mg 08/06/24 13:23 08/06/24 14:50
Benzonatate 100 Mg Capsule PO 09/03/24 13:22 100 mg
TIDPRN PRN Administration
cough
Bisacodyl 10 mg 08/01/24 16:27
Bisacodyl 10 Mg Rectal Suppository RECTAL 08/29/24 16:26
[id number] PRN
constipation
Diphenhydramine HCl 25 mg 08/01/24 16:50 08/06/24 23:52
Diphenhydramine 25 Mg Capsule PO 08/29/24 16:49 25 mg
HSPRN PRN Administration
sleep
Diphenhydramine HCl 25 mg 08/07/24 12:43
Diphenhydramine 25 Mg Capsule PO 09/04/24 12:42
HSPRN PRN
insomnia
Fluticasone Propionate 2 puff 08/01/24 20:00 08/07/24 08:16
Fluticasone 110mcg Inhaler INH 08/29/24 19:59 2 puff
R BID DHARMESH Administration
Protocol
Furosemide 40 mg 08/02/24 08:00 08/07/24 08:29
Furosemide 40 Mg Tablet PO 08/30/24 07:59 40 mg
DAILY DHARMESH Administration
Lidocaine 1 patch 08/01/24 10:15 08/07/24 08:33
Lidocaine 4% Topical Patch TOPICAL 08/29/24 10:14 1 patch
DAILY DHARMESH Administration
Protocol
Melatonin 5 mg 08/01/24 22:00 08/06/24 21:08
Melatonin 5 Mg Tablet PO 08/29/24 21:59 5 mg
HS DHARMESH Administration
Melatonin 5 mg 08/07/24 22:00
Melatonin 5 Mg Tablet PO 09/04/24 21:59
HS DHARMESH
Multivitamins Therapeutic 1 tablet 08/02/24 08:00 08/07/24 08:29
Multivitamin Tablet PO 08/30/24 07:59 1 tablet
DAILY DHARMESH Administration
Oxycodone HCl 5 mg 08/01/24 15:25 08/07/24 03:05
Oxycodone 5 Mg Regular Release Tablet PO 08/15/24 15:24 5 mg
Q4HPRN PRN Administration
severe pain
Pantoprazole Sodium 40 mg 08/02/24 08:00 08/07/24 08:29
Pantoprazole 40 Mg Delayed Release Tablet PO 08/30/24 07:59 40 mg
DAILY DHARMESH Administration
Patch Removal 0 patch 08/01/24 20:00 08/06/24 21:08
Remove Lidocaine Patch REMOVE 08/29/24 19:59 1 patch
DAILY@2000 DHARMESH Administration
Polyethylene Glycol 17 grams 08/01/24 16:27
Polyethylene Glycol Powder 17 Grams Packet PO 08/29/24 16:26
DAILYPRN PRN
constipation
Rivaroxaban 15 mg 08/02/24 08:00 08/07/24 08:28
Rivaroxaban 15 Mg Tablet PO 08/30/24 07:59 15 mg
DAILY DHARMESH Administration
Senna/Docusate Sodium 1 tablet 08/01/24 16:27
Docusate W/Senna (Griselda-Colace) Tablet PO 08/29/24 16:26
BIDPRN PRN
constipation
Sodium Chloride 0 flush 08/01/24 17:00 08/02/24 09:36
Sodium Chloride 0.9% (Flush) Syringe IV 08/29/24 16:59 1 flush
PER PROTOCOL DHARMESH Administration
Tamsulosin HCl 0.4 mg 08/02/24 14:00 08/07/24 08:29
Tamsulosin 0.4 Mg Capsule PO 08/30/24 13:59 0.4 mg
DAILY DHARMESH Administration
Vitamin C/Vitamin E 1 cap 08/02/24 08:00 08/07/24 08:28
Vit C/Vit E/Lutein/Min/Plover-3 (Ocuvite) Capsule PO 08/30/24 07:59 1 cap
DAILY DHARMESH Administration
Home Medications
-
Home Medications
amlodipine 5 mg tablet (Norvasc) 5 mg PO DAILY Blood Pressure 01/04/24
atorvastatin 10 mg tablet (Lipitor) 10 mg PO HS High Cholesterol 01/04/24
budesonide 180 mcg/actuation breath activated powder inhaler (Pulmicort Flexhaler) 2 inh inhalation R BID Lung/Breathing Issues 01/04/24
esomeprazole magnesium 20 mg capsule,delayed release (Nexium) 20 mg PO DAILY Gastrointestinal Issue 01/04/24
melatonin 5 mg tablet 5 mg PO HS sleep 01/04/24
vitamins A,C,U-pbru-dqdnkl 2,148 mcg-113 mg-45 mg-17.4 mg tablet (PreserVision AREDS) 1 tab PO DAILY Supplement 01/04/24
rivaroxaban 15 mg tablet (Xarelto) 15 mg PO DAILY #30 tabs 01/07/24
diphenhydramine 25 mg-acetaminophen 500 mg tablet (Tylenol PM Extra Strength) 3 - 4 tab PO HSPRN PRN sleep 08/01/24
furosemide 40 mg tablet (Lasix) 40 mg PO DAILY Fluid Retention/Swelling 08/01/24
therapeutic multivitamin 1 tab PO DAILY Supplement 08/01/24
oxycodone 5 mg tablet 5 mg PO Q4HPRN PRN severe pain #4 tabs 08/07/24
[2024-08-07] MEDS: MELATONIN 5 MG PO (21:09)
[2024-08-07] MEDS: LIPITOR 10 MG PO (21:09)
[2024-08-07] MEDS: BENADRYL 25 MG PO (21:10)
[2024-08-07] MEDS: SENOKOT-S 1 TABLET PO (21:10)
[2024-08-07 23:41] VITALS: BP 124/80
[2024-08-08 06:56] VITALS: BP 118/74
--- NOTE | 2024-08-08 09:36 | W.DCSUMMARY ---
Discharge Summary
Discharge Data
Date of Admission: 08/02/24
Date of Discharge: 08/08/24
-
Pending Results: No
Hospital Course
Patient 89 years old male history of EFRAIN, obesity, paroxysmal A-fib, prostate cancer status post radical prostatectomy, chronic diastolic CHF, GERD, presented to the hospital with acute on chronic lower back pain and hip discomfort and mental status
changes. Patient had several images including CT of the head unremarkable, femur x-ray no acute fractures, right hip x-ray no acute fractures, right knee x-ray no acute fractures, lumbar spine x-ray with no acute fractures but multilevel lumbar
spondylosis, CT scan of right and left hip no acute fracture and lumbar spine with degenerative phase joint disease at L4-L5 and L5-S1, MRI of the lumbar spine with multiple discogenic degenerative disease from T10-S1 and moderate to severe central
canal stenosis as well as multiple other abnormalities. Neurosurgery evaluated the patient and felt there was no inpatient surgical indication but they will follow-up as outpatient. He was treated with multimodal pain regimen and pain was able to
be controlled. PT OT worked with patient and felt he was a candidate for skilled rehab.
Patient also had some mental status changes and neurology and psychiatry evaluated the patient. Family was concerned about Parkinson's or stroke but neurology did not feel this was the etiology rather this was delirium and multifactorial
encephalopathy. He was initially placed on antipsychotic but later on discontinued by psychiatry recommendation. He had some overall improvement during the hospital stay. Patient was recommended to follow-up with neurology as outpatient. CT of
the head no acute intracranial abnormalities and some mild chronic small vessel disease. Patient remains with delirium but neurologically intact at the time of discharge. Neurology cleared him for discharge.
Patient also had urinary retention and a Rock catheter was placed and urology consulted. Patient was noted to have elevated PSA that has been monitored as outpatient. He had bladder scan with no retention and catheter draining without any issues.
Urology will continue to follow-up as outpatient for further evaluation as pertains to the elevation of PSA and urinary retention. His renal function improved throughout this hospital stay. His creatinine was as high as 1.8 and it went down as
low as 1.3 upon discharge.
Patient otherwise is hemodynamically stable and he is going to be discharged to skilled rehab today. No others were noticed.
Discharge duration: 35 minutes
Discharge Plan
-
Patient Disposition: [facility]
Discharge Diagnosis/Procedures: Acute mental status changes related to dementia. Acute on chronic lower back pain. Acute on chronic urinary retention. Acute kidney injury on chronic kidney disease stage III. Prostate cancer paroxysmal atrial
fibrillation. Chronic diastolic congestive heart failure.
Diet: Low Cholesterol
Blood Work: Please PCP order CBC, BMP within 1 week
Referrals:
Piper Hough DO [Active] - in one to two months
Deborah Gonzales MD [Active] - in two to three weeks
Linda Rao CRNP [Family Provider] - in less than 1 week
Jaden Choe MD [Active] - in four to six weeks
Sonia Bee MD [Active] - in three to four weeks
Additional Discharge Medication Instructions: Patient's rock catheter can be removed on 08/12 or after, once he has remained some mobility and functional status improving
Bladder scan post void and replace if residual is >200cc
If unable to coordinate this at facility, this trial of void can be done at the [facility] urology office - [phone] Seymour
Prescriptions:
New
lidocaine 4 % Adhesive Patch,Medicated
1 patch topical DAILY 30 Days Qty: 30 0RF
polyethylene glycol 3350 [HealthyLax] 17 gram Powder In Packet
17 g PO DAILYPRN PRN (Reason: constipation) 30 Days Qty: 14 0RF
tamsulosin 0.4 mg Capsule
0.4 mg PO DAILY 30 Days Qty: 30 0RF
oxycodone 5 mg Tablet
5 mg PO Q4HPRN PRN (Reason: severe pain) Qty: 4 0RF
sennosides-docusate sodium 8.6-50 mg Tablet
1 tab PO BIDPRN PRN (Reason: constipation) Qty: 20 0RF
diphenhydramine HCl 25 mg Capsule
25 mg PO HSPRN PRN (Reason: insomnia) Qty: 14 0RF
acetaminophen 325 mg Tablet
650 mg PO Q4HPRN PRN (Reason: mild pain/SMITH/temp> 100.4F) Qty: 30 0RF
Continued
atorvastatin [Lipitor] 10 mg Tablet
10 mg PO HS
amlodipine [Norvasc] 5 mg Tablet
5 mg PO DAILY
esomeprazole magnesium [Nexium] 20 mg Capsule,Delayed Release(Dr/Ec)
20 mg PO DAILY
PreserVision AREDS 2,148 mcg-113 mg-45 mg-17.4mg Tablet
1 tab PO DAILY
Pulmicort Flexhaler 180 mcg/actuation Aerosol Powdr Breath Activated
2 inh INHALATION R BID
melatonin 5 mg Tablet
5 mg PO HS
Xarelto 15 mg Tablet
15 mg PO DAILY Qty: 30 0RF
therapeutic multivitamin Tablet
1 tab PO DAILY
furosemide [Lasix] 40 mg tablet
40 mg PO DAILY
Discontinued
diphenhydramine-acetaminophen [Tylenol PM Extra Strength] 25-500 mg Tablet
3 - 4 tab PO HSPRN PRN (Reason: sleep)
Discharge Orders:
Discharge Patient (As Directed); Ordered 08/08/24
Ordered By: Osmany Sahu
Discharge Date and Time
Discharge Date/Time: 08/08/24 12:00
Print Language: [place]IZ[place]
--- NOTE | 2024-08-08 09:36 | W.PN.HOSP.TC ---
Today's Communication/Plan
-
Discharge planning today.
Assessment / Plan
Assessment / Plan
Physical exam:
General: Acutely and chronically ill and No Apparent Distress
HEENT: Normocephalic, Atraumatic and Moist Mucous Membranes
Respiratory: Clear to Auscultation; Negative Wheezes, Rales or Rhonchi
Cardiac: Regular Rhythm and S1/S2
GI: Soft, Nontender and Nondistended
Musculoskeletal: No Clubbing, No Cyanosis and No Edema
Neuro: Awake, Alert and Disoriented, no gross neurological deficits but generalized weakness and mild tremors. No rigidity or bradykinesia
Psych: Calm
Mental status changes related to dementia and /acute on chronic lower back pain with lower extremity pain and weakness related to DJD and disc pathology:
Neurology reevaluated the patient yesterday on 08/07
Plan to discharge today to SNF
Prior to today:
Neurology evaluated the patient previously and appreciated input--> is very concerned about neurological issues such as stroke and/or Parkinson's and requested neurology reevaluation.
I asked neurology to reevaluate today but since they do not know the patient, therefore I asked for new consult from neurology today-discussed via [facility] text on 08/07 and neurology will see the patient today.
Discussed with at length at bedside.
Discussed with psychiatry as well.
Discontinue Zyprexa per psychiatry
On melatonin and Benadryl per psychiatry for sleeping aid.
Prior to today:
Neurosurgery evaluated the patient and appreciated input
Psychiatry evaluated the patient and appreciated input as well
Reviewed lumbar MRI
Cont pain control
Discussed with prior
Case management working on discharge disposition
Acute on chronic urinary retention:
Lucas catheter
Urology evaluated patient and appreciated input.
PRESTON on CKD stage 3:
Creatinine 1.1-->1.8--> 1.5-->on 08/06 1.3
Prostate cancer:
Status post prostatectomy in the past with hormone therapy treatment
Needs follow-up PSA surveillance as outpatient closely
Paroxysmal atrial fibrillation:
Not rate control agents
On anticoagulation, Xarelto
Chronic diastolic CHF:
Appears euvolemic
Cont Lasix 40 mg daily
DVT prophylaxis:
Xarelto
Code status:
Full code
Anticipated Discharge: Today
Subjective/Interval History
-
Date of Service: August 08, 2024
Patient seen and examined
Objective Data
-
Vital Signs:
Vital Signs
Temp Pulse Resp BP Pulse Ox
99.8 F 53 14 118/74 93
08/08/24 06:56 08/08/24 07:12 08/08/24 07:12 08/08/24 06:56 08/08/24 07:12
I&O
08/07/24 08/08/24 08/09/24
06:59 06:59 06:59
Intake Total 720 / 720 1040 / 1040
Output Total 850 / 850 1150 / 1150
Balance -130 / -130 -110 / -110
[2024-08-08] MEDS: NORVASC 5 MG PO (09:44)
[2024-08-08] MEDS: PROTONIX 40 MG PO (09:44)
[2024-08-08] MEDS: OCUVITE SOFTGEL 1 CAP PO (09:44)
[2024-08-08] MEDS: LASIX 40 MG PO (09:45)
[2024-08-08] MEDS: FLOMAX 0.4 MG PO (09:45)
[2024-08-08] MEDS: LIDOCAINE 4% PATCH TOPICAL (09:45)
[2024-08-08] MEDS: XARELTO 15 MG PO (09:45)
[2024-08-08] MEDS: THERAGRAN 1 TABLET PO (09:45)
[2024-08-08] MEDS: SENOKOT-S 1 TABLET PO (09:45)
[2024-08-08] MEDS: MIRALAX 17 GRAMS PO (09:52)
--- NOTE | 2024-08-08 10:27 | CM ---
entered order for discharge.
Eileen called from [facility] Pt approved snf from 08/07/24 to 08/09/24 NRD call Jane Montesinos #[phone] fax [phone] Auth number [id number] .
Elaina aware of above . Pt accepted today.
Medical nec form completed.
Yoly notified of dc to SNF.
PT requested ambulance .
Jalen '
report [phone]
fax [phone]
PLAN To Seth via ambulance
[2024-08-08 11:53] VITALS: BP 111/66
== END 2024-08-08 12:00 | DRG 552 ==
LOC: 4 EAST ACU 13:17
PROVIDERS: Internal Medicine; Nurse Practitioner Family; Physician Assistant; ADMITTING PHYSICIAN Student in an Organized Health Care Education/Training Program; ATTENDING PHYSICIAN Hospitalist; CONSULT PHYSICIAN Psychiatry & Neurology Neurology; CONSULT PHYSICIAN Psychiatry & Neurology Psychiatry; CONSULT PHYSICIAN Urology; EMERGENCY PHYSICIAN Emergency Medicine; FAMILY PHYSICIAN Nurse Practitioner; OTHER PHYSICIAN Neurological Surgery
DX: M54.16 Radiculopathy, lumbar region (principal); I13.0 Hypertensive heart and chronic kidney disease with heart failure and stage 1 through stage 4 chronic kidney disease, or unspecified chronic kidney disease; I50.32 Chronic diastolic (congestive) heart failure; N17.9 Acute kidney failure, unspecified; F05 Delirium due to known physiological condition; Z87.891 Personal history of nicotine dependence; I48.0 Paroxysmal atrial fibrillation; C61 Malignant neoplasm of prostate; N18.31 Chronic kidney disease, stage 3a; M48.061 Spinal stenosis, lumbar region without neurogenic claudication
CPT/HCPCS: 71046; 72110; 72148; 73502; 73552; 73564; 73700; 80048; 80053; 80076; 81003; 81015; 82248; 82728; 83540; 83550; 83615; 84153; 85025; 85027; 85045; 93005; 94640; 97110; 97116; 97166; 97530; 97535; 99285; J2358

== ENCOUNTER → 2024-09-17 14:40 | Outpatient (REF) | payer MEDICARE, SELFPAY | LOC: CLAB 14:40 | PROVIDERS: ATTENDING PHYSICIAN Specialist | DX: N39.0 Urinary tract infection, site not specified (principal) | CPT/HCPCS: 87086 ==

== ENCOUNTER → 2025-06-30 15:41 | Outpatient (REF) | payer MEDICARE, SELFPAY | LOC: HWRCS 15:41 | PROVIDERS: ATTENDING PHYSICIAN Internal Medicine Cardiovascular Disease; FAMILY PHYSICIAN Nurse Practitioner | DX: I35.0 Nonrheumatic aortic (valve) stenosis (principal) | CPT/HCPCS: 93306 ==